=== PATIENT | male | born 1940 | race Caucasian/White ===

== ENCOUNTER 2021-01-28 07:44 | Day surgery (SDC) | payer OTHER ==
[2021-01-28] MEDS ORDERED: LEUPROLIDE ACETATE 22.5 MG DIS IM ONE (15:30)
[2021-01-28 16:09] LABS: BASO % 0.5 % (0-2.0); EOS % 0.7 % (0-4.5); HEMATOCRIT 44.2 % (35.4-49); HEMOGLOBIN 14.1 GM/dL (11.7-16.9); LYMPH % 24.1 % (8-40); MCHC 31.9 g/dl (32.0-35.9); MEAN CELL VOLUME 62.8 fl (80-96); MEAN PLT VOLUME 8.8 fl (7.5-11.1); MONO % 7.8 % (3.8-10.2); NEUT % 66.9 % (42.8-82.8); PLATELET COUNT 219 10^3/uL (134-434); WHITE BLOOD COUNT 6.2 K/mm3 (4.0-10.0)
[2021-01-28 16:33] LABS: ALBUMIN 4.3 g/dl (3.4-5.0); BLOOD UREA NITROGEN 20.4 mg/dL (7-18)
[2021-01-28 16:36] LABS: CREATININE 0.9 mg/dL (0.55-1.3)
[2021-01-28 16:38] LABS: BILIRUBIN,TOTAL 0.9 mg/dL (0.2-1); TOT PROT 7.6 g/dl (6.4-8.2)
[2021-01-28 16:44] LABS: RBC 7.03 M/mm3 (4.00-5.60)
[2021-01-28 17:45] VITALS: BP 138/62; PULSE 76; TEMP 98
[2021-01-28 18:53] LABS: ANISOCYTOSIS 2+
== END 2021-01-28 16:15 | disposition home or self-care (01) ==
LOC: JONCCHEMO 07:44
PROVIDERS: ATTEND Internal Medicine Hematology & Oncology
PROC: 3E013GC Introduction of Other Therapeutic Substance into Subcutaneous Tissue, Percutaneous Approach (ICD-10-PCS; principal; 2021-01-28)
DX: C61 Malignant neoplasm of prostate (principal); I10 Essential (primary) hypertension; E11.9 Type 2 diabetes mellitus without complications; Z76.89 Persons encountering health services in other specified circumstances
CPT/HCPCS: 36415; 80053; 85025; 96372; J9217

== ENCOUNTER 2021-05-06 10:02 | Day surgery (SDC) | payer OTHER ==
[~2021-05-06 10:02] MED LIST: LEUPROLIDE ACETATE 22.5 MG DIS IM ONE
[2021-05-06 11:15] LABS: BASO % 0.6 % (0-2.0); EOS % 0.6 % (0-4.5); HEMATOCRIT 38.8 % (35.4-49); HEMOGLOBIN 12.5 GM/dL (11.7-16.9); LYMPH % 33.9 % (8-40); MCH 20.4 pg (25.7-33.7); MCHC 32.3 g/dl (32.0-35.9); MEAN PLT VOLUME 8.1 fl (7.5-11.1); MONO % 8.8 % (3.8-10.2); NEUT % 56.1 % (42.8-82.8); PLATELET COUNT 231 10^3/uL (134-434); RBC 6.16 M/mm3 (4.00-5.60); RDW 16.7 % (11.9-15.9); WHITE BLOOD COUNT 5.8 K/mm3 (4.0-10.0)
[2021-05-06 11:40] LABS: CALCIUM 9.6 mg/dL (8.5-10.1)
[2021-05-06 11:41] LABS: ALBUMIN 4.1 g/dl (3.4-5.0); BLOOD UREA NITROGEN 23.7 mg/dL (7-18)
[2021-05-06 11:43] LABS: ANISOCYTOSIS 2+; CREATININE 0.9 mg/dL (0.55-1.3); MACROCYTOSIS 0; PLATELET ESTIMATE NORMAL
[2021-05-06 11:45] LABS: BILIRUBIN,TOTAL 0.7 mg/dL (0.2-1)
[2021-05-06 11:46] LABS: TOT PROT 7.3 g/dl (6.4-8.2)
[2021-05-06 16:24] VITALS: BP 126/73; TEMP 98.4
[2021-05-06 16:26] VITALS: PULSE 100
== END 2021-05-06 12:40 | disposition home or self-care (01) ==
LOC: JONCCHEMO 10:02
PROVIDERS: ATTEND Internal Medicine Hematology & Oncology
DX: Z51.11 Encounter for antineoplastic chemotherapy (principal); C61 Malignant neoplasm of prostate
CPT/HCPCS: 36415; 80053; 84153; 85025; 96402; J9217

== ENCOUNTER 2021-06-24 08:59 | Day surgery (SDC) | payer OTHER ==
[2021-06-24] MEDS ORDERED: DENOSUMAB 120 MG/1.7 ML VIAL SQ ONE (12:00)
[2021-06-24 12:34] LABS: BASO % 0.6 % (0-2.0); EOS % 0.9 % (0-4.5); HEMATOCRIT 40.5 % (35.4-49); HEMOGLOBIN 12.5 GM/dL (11.7-16.9); LYMPH % 38.3 % (8-40); MCHC 30.8 g/dl (32.0-35.9); MEAN PLT VOLUME 7.9 fl (7.5-11.1); MONO % 6.6 % (3.8-10.2); NEUT % 53.6 % (42.8-82.8); PLATELET COUNT 265 10^3/uL (134-434); RBC 6.23 M/mm3 (4.00-5.60); RDW 16.3 % (11.9-15.9); WHITE BLOOD COUNT 5.3 K/mm3 (4.0-10.0)
[2021-06-24 12:50] LABS: ALBUMIN 4.1 g/dl (3.4-5.0); BLOOD UREA NITROGEN 19.5 mg/dL (7-18); CALCIUM 9.9 mg/dL (8.5-10.1)
[2021-06-24 12:53] LABS: CREATININE 0.8 mg/dL (0.55-1.3)
[2021-06-24 12:55] LABS: TOT PROT 7.4 g/dl (6.4-8.2)
[2021-06-24 12:58] LABS: BILIRUBIN,TOTAL 0.7 mg/dL (0.2-1)
[2021-06-24 14:21] LABS: ANISOCYTOSIS 1+; MACROCYTOSIS 0; PLATELET ESTIMATE NORMAL
[2021-06-24 17:11] VITALS: BP 109/44; PULSE 52; TEMP 98
== END 2021-06-24 12:45 | disposition home or self-care (01) ==
LOC: JONCCHEMO 08:59
PROVIDERS: ATTEND Internal Medicine Hematology & Oncology
PROC: 3E013GC Introduction of Other Therapeutic Substance into Subcutaneous Tissue, Percutaneous Approach (ICD-10-PCS; principal; 2021-06-24)
DX: C61 Malignant neoplasm of prostate (principal); Z76.89 Persons encountering health services in other specified circumstances
CPT/HCPCS: 36415; 80053; 85025; 96372; J0897

== ENCOUNTER 2021-07-22 08:15 | Day surgery (SDC) | payer OTHER ==
[2021-07-22] MEDS ORDERED: DENOSUMAB 120 MG/1.7 ML VIAL SQ ONE (10:00)
[2021-07-22 12:35] LABS: BASO % 0.6 % (0-2.0); EOS % 0.9 % (0-4.5); HEMATOCRIT 39.4 % (35.4-49); HEMOGLOBIN 12.5 GM/dL (11.7-16.9); LYMPH % 40.9 % (8-40); MCH 20.8 pg (25.7-33.7); MCHC 31.8 g/dl (32.0-35.9); MEAN CELL VOLUME 65.3 fl (80-96); MEAN PLT VOLUME 8.2 fl (7.5-11.1); MONO % 6.6 % (3.8-10.2); PLATELET COUNT 237 10^3/uL (134-434); RBC 6.03 M/mm3 (4.00-5.60); RDW 16.1 % (11.9-15.9); WHITE BLOOD COUNT 4.7 K/mm3 (4.0-10.0)
[2021-07-22 12:59] LABS: ALBUMIN 4.1 g/dl (3.4-5.0); BLOOD UREA NITROGEN 22.1 mg/dL (7-18)
[2021-07-22 13:02] LABS: CREATININE 0.8 mg/dL (0.55-1.3)
[2021-07-22 13:04] LABS: BILIRUBIN,TOTAL 0.8 mg/dL (0.2-1); TOT PROT 7.1 g/dl (6.4-8.2)
[2021-07-22 13:19] LABS: ANISOCYTOSIS 2+; MACROCYTOSIS 0; OVALOCYTE 2+; TEAR DROP CELLS 1+
[2021-07-22 15:14] VITALS: BP 118/59; PULSE 71; TEMP 97.9
== END 2021-07-22 14:00 | disposition home or self-care (01) ==
LOC: JONCCHEMO 08:15
PROVIDERS: ATTEND Internal Medicine Hematology & Oncology
PROC: 3E013GC Introduction of Other Therapeutic Substance into Subcutaneous Tissue, Percutaneous Approach (ICD-10-PCS; principal; 2021-07-22)
DX: C61 Malignant neoplasm of prostate (principal); Z76.89 Persons encountering health services in other specified circumstances
CPT/HCPCS: 36415; 80053; 85025; 96372; J0897

== ENCOUNTER 2021-08-05 07:47 | Day surgery (SDC) | payer OTHER ==
[2021-08-05] MEDS ORDERED: LEUPROLIDE ACETATE 22.5 MG DIS IM ONE (09:00)
[2021-08-05 11:12] LABS: BASO % 0.5 % (0-2.0); EOS % 0.9 % (0-4.5); HEMOGLOBIN 12.8 GM/dL (11.7-16.9); LYMPH % 36.5 % (8-40); MCH 20.8 pg (25.7-33.7); MEAN CELL VOLUME 64.9 fl (80-96); MONO % 7.3 % (3.8-10.2); NEUT % 54.8 % (42.8-82.8); PLATELET COUNT 216 10^3/uL (134-434); RBC 6.16 M/mm3 (4.00-5.60); RDW 16.1 % (11.9-15.9)
[2021-08-05 11:32] LABS: BLOOD UREA NITROGEN 20.5 mg/dL (7-18); CALCIUM 9.2 mg/dL (8.5-10.1)
[2021-08-05 11:35] LABS: CREATININE 0.9 mg/dL (0.55-1.3)
[2021-08-05 11:37] LABS: BILIRUBIN,TOTAL 0.7 mg/dL (0.2-1); TOT PROT 7.1 g/dl (6.4-8.2)
[2021-08-05 12:10] LABS: ANISOCYTOSIS 3+; MACROCYTOSIS 0
[2021-08-05 16:14] VITALS: BP 147/72; PULSE 78; TEMP 98.2
== END 2021-08-05 12:40 | disposition home or self-care (01) ==
LOC: JONCCHEMO 07:47
PROVIDERS: ATTEND Internal Medicine Hematology & Oncology
PROC: 3E013GC Introduction of Other Therapeutic Substance into Subcutaneous Tissue, Percutaneous Approach (ICD-10-PCS; principal; 2021-08-05)
DX: C61 Malignant neoplasm of prostate (principal); Z76.89 Persons encountering health services in other specified circumstances
CPT/HCPCS: 36415; 80053; 85025; 96372; J9217

== ENCOUNTER 2021-08-27 08:30 | Day surgery (SDC) | payer OTHER ==
[2021-08-27] MEDS ORDERED: LEUPROLIDE ACETATE 22.5 MG DIS IM ONE (10:00)
[2021-08-27] MEDS ORDERED: DENOSUMAB 120 MG/1.7 ML VIAL SQ ONE ×2 (10:00→12:17)
[2021-08-27 13:59] LABS: BASO % 0.5 % (0-2.0); HEMATOCRIT 39.2 % (35.4-49); HEMOGLOBIN 12.3 GM/dL (11.7-16.9); LYMPH % 36.7 % (8-40); MCH 20.3 pg (25.7-33.7); MCHC 31.4 g/dl (32.0-35.9); MEAN CELL VOLUME 64.7 fl (80-96); MEAN PLT VOLUME 8.1 fl (7.5-11.1); MONO % 6.6 % (3.8-10.2); NEUT % 55.2 % (42.8-82.8); PLATELET COUNT 263 10^3/uL (134-434); RBC 6.06 M/mm3 (4.00-5.60); RDW 15.4 % (11.9-15.9); WHITE BLOOD COUNT 5.2 K/mm3 (4.0-10.0)
[2021-08-27 14:25] LABS: ALBUMIN 3.9 g/dl (3.4-5.0); BLOOD UREA NITROGEN 19.2 mg/dL (7-18); CALCIUM 9.1 mg/dL (8.5-10.1)
[2021-08-27 14:28] LABS: CREATININE 0.8 mg/dL (0.55-1.3)
[2021-08-27 14:30] LABS: BILIRUBIN,TOTAL 0.6 mg/dL (0.2-1); TOT PROT 7.1 g/dl (6.4-8.2)
[2021-08-27 14:38] LABS: ANISOCYTOSIS 3+; MACROCYTOSIS 0
[2021-08-27 17:55] VITALS: BP 121/68; PULSE 75; TEMP 98.6
== END 2021-08-27 15:45 | disposition home or self-care (01) ==
LOC: JONCCHEMO 08:30
PROVIDERS: ATTEND Internal Medicine Hematology & Oncology
PROC: 3E013GC Introduction of Other Therapeutic Substance into Subcutaneous Tissue, Percutaneous Approach (ICD-10-PCS; principal; 2021-08-27)
DX: C61 Malignant neoplasm of prostate (principal); Z76.89 Persons encountering health services in other specified circumstances
CPT/HCPCS: 36415; 80053; 84153; 85025; 96372; J0897

== ENCOUNTER 2021-09-23 08:10 | Day surgery (SDC) | payer OTHER ==
[2021-09-23] MEDS ORDERED: DENOSUMAB 120 MG/1.7 ML VIAL SQ ONE (10:00)
[2021-09-23 13:27] LABS: BASO % 0.6 % (0-2.0); EOS % 0.7 % (0-4.5); HEMATOCRIT 38.8 % (35.4-49); HEMOGLOBIN 12.5 GM/dL (11.7-16.9); LYMPH % 35.1 % (8-40); MCHC 32.1 g/dl (32.0-35.9); MEAN CELL VOLUME 65.3 fl (80-96); MEAN PLT VOLUME 8.2 fl (7.5-11.1); MONO % 8.3 % (3.8-10.2); NEUT % 55.3 % (42.8-82.8); PLATELET COUNT 230 10^3/uL (134-434); RBC 5.94 M/mm3 (4.00-5.60); RDW 15.9 % (11.9-15.9); WHITE BLOOD COUNT 4.6 K/mm3 (4.0-10.0)
[2021-09-23 13:41] LABS: ALBUMIN 4.2 g/dl (3.4-5.0); CALCIUM 9.8 mg/dL (8.5-10.1)
[2021-09-23 13:42] LABS: BLOOD UREA NITROGEN 18.9 mg/dL (7-18)
[2021-09-23 13:44] LABS: CREATININE 0.8 mg/dL (0.55-1.3)
[2021-09-23 13:46] LABS: BILIRUBIN,TOTAL 0.7 mg/dL (0.2-1); TOT PROT 7.3 g/dl (6.4-8.2)
[2021-09-23 14:02] LABS: ANISOCYTOSIS 2+; MACROCYTOSIS 0; TEAR DROP CELLS 1+
[2021-09-23 16:03] VITALS: BP 141/72; PULSE 69; TEMP 98.3
== END 2021-09-23 14:00 | disposition home or self-care (01) ==
LOC: JONCCHEMO 08:10
PROVIDERS: ATTEND Internal Medicine Hematology & Oncology
PROC: 3E013GC Introduction of Other Therapeutic Substance into Subcutaneous Tissue, Percutaneous Approach (ICD-10-PCS; principal; 2021-09-23)
DX: C61 Malignant neoplasm of prostate (principal); Z76.89 Persons encountering health services in other specified circumstances
CPT/HCPCS: 36415; 80053; 84153; 84402; 84403; 85025; 96372; J0897

== ENCOUNTER 2021-10-21 08:49 | Day surgery (SDC) | payer OTHER ==
[2021-10-21] MEDS ORDERED: DENOSUMAB 120 MG/1.7 ML VIAL SQ ONE ×2 (10:00)
[2021-10-21 13:14] LABS: BASO % 0.5 % (0-2.0); EOS % 0.9 % (0-4.5); HEMATOCRIT 37.8 % (35.4-49); HEMOGLOBIN 12.2 GM/dL (11.7-16.9); LYMPH % 32.6 % (8-40); MCH 20.9 pg (25.7-33.7); MCHC 32.4 g/dl (32.0-35.9); MEAN CELL VOLUME 64.5 fl (80-96); MEAN PLT VOLUME 8.2 fl (7.5-11.1); MONO % 5.4 % (3.8-10.2); NEUT % 60.6 % (42.8-82.8); PLATELET COUNT 218 10^3/uL (134-434); RBC 5.86 M/mm3 (4.00-5.60); RDW 15.4 % (11.9-15.9)
[2021-10-21 13:29] LABS: CALCIUM 9.5 mg/dL (8.5-10.1)
[2021-10-21 13:30] LABS: BLOOD UREA NITROGEN 16.5 mg/dL (7-18)
[2021-10-21 13:33] LABS: CREATININE 0.9 mg/dL (0.55-1.3)
[2021-10-21 13:34] LABS: BILIRUBIN,TOTAL 0.6 mg/dL (0.2-1)
[2021-10-21 14:34] LABS: ANISOCYTOSIS 3+; MACROCYTOSIS 0
[2021-10-21 18:52] VITALS: BP 121/62; PULSE 84; TEMP 98.5
== END 2021-10-21 13:15 | disposition home or self-care (01) ==
LOC: JONCCHEMO 08:49
PROVIDERS: ATTEND Internal Medicine Hematology & Oncology
PROC: 3E013GC Introduction of Other Therapeutic Substance into Subcutaneous Tissue, Percutaneous Approach (ICD-10-PCS; principal; 2021-10-21)
DX: C61 Malignant neoplasm of prostate (principal); Z76.89 Persons encountering health services in other specified circumstances
CPT/HCPCS: 36415; 80053; 85025; 96372; J0897

== ENCOUNTER 2021-10-28 07:45 | Day surgery (SDC) | payer OTHER ==
[2021-10-28] MEDS ORDERED: LEUPROLIDE ACETATE 22.5 MG DIS IM ONE (10:00)
[2021-10-28 12:47] VITALS: BP 102/63; PULSE 80; TEMP 98.4
[2021-10-28 13:36] LABS: BASO % 0.4 % (0-2.0); EOS % 0.8 % (0-4.5); HEMATOCRIT 38.8 % (35.4-49); HEMOGLOBIN 12.5 GM/dL (11.7-16.9); LYMPH % 33.3 % (8-40); MCH 20.9 pg (25.7-33.7); MCHC 32.2 g/dl (32.0-35.9); MEAN CELL VOLUME 64.9 fl (80-96); MONO % 6.6 % (3.8-10.2); NEUT % 58.9 % (42.8-82.8); PLATELET COUNT 230 10^3/uL (134-434); RBC 5.98 M/mm3 (4.00-5.60); RDW 15.5 % (11.9-15.9); WHITE BLOOD COUNT 5.3 K/mm3 (4.0-10.0)
[2021-10-28 13:46] LABS: BLOOD UREA NITROGEN 19.6 mg/dL (7-18); CALCIUM 9.5 mg/dL (8.5-10.1)
[2021-10-28 13:50] LABS: CREATININE 0.8 mg/dL (0.55-1.3)
[2021-10-28 13:51] LABS: BILIRUBIN,TOTAL 0.6 mg/dL (0.2-1); TOT PROT 7.1 g/dl (6.4-8.2)
[2021-10-28 15:22] LABS: ANISOCYTOSIS 2+; MACROCYTOSIS 0; OVALOCYTE 2+; TEAR DROP CELLS 1+
== END 2021-10-28 14:50 | disposition home or self-care (01) ==
LOC: JONCCHEMO 07:45
PROVIDERS: ATTEND Internal Medicine Hematology & Oncology
DX: Z51.11 Encounter for antineoplastic chemotherapy (principal); C61 Malignant neoplasm of prostate
CPT/HCPCS: 36415; 80053; 85025; 96402; J9217

== ENCOUNTER 2021-11-25 07:26 | Day surgery (SDC) | payer OTHER ==
[2021-11-25] MEDS ORDERED: DENOSUMAB 120 MG/1.7 ML VIAL SQ ONE (10:00)
[2021-11-25 14:18] LABS: BASO % 0.7 % (0-2.0); EOS % 1.2 % (0-4.5); HEMATOCRIT 40.4 % (35.4-49); HEMOGLOBIN 12.7 GM/dL (11.7-16.9); LYMPH % 38.5 % (8-40); MCH 20.5 pg (25.7-33.7); MCHC 31.4 g/dl (32.0-35.9); MEAN CELL VOLUME 65.4 fl (80-96); MEAN PLT VOLUME 8.7 fl (7.5-11.1); MONO % 6.3 % (3.8-10.2); NEUT % 53.3 % (42.8-82.8); PLATELET COUNT 249 10^3/uL (134-434); RBC 6.18 M/mm3 (4.00-5.60); RDW 15.6 % (11.9-15.9); WHITE BLOOD COUNT 5.4 K/mm3 (4.0-10.0)
[2021-11-25 14:38] LABS: ANISOCYTOSIS 1+; MACROCYTOSIS 0
[2021-11-25 14:45] LABS: CALCIUM 9.3 mg/dL (8.5-10.1)
[2021-11-25 14:46] LABS: ALBUMIN 4.3 g/dl (3.4-5.0)
[2021-11-25 14:50] LABS: TOT PROT 7.4 g/dl (6.4-8.2)
[2021-11-25 14:51] LABS: BILIRUBIN,TOTAL 0.8 mg/dL (0.2-1)
[2021-11-25 15:24] VITALS: BP 114/52; PULSE 80; TEMP 97
== END 2021-11-25 15:40 | disposition home or self-care (01) ==
LOC: JONCCHEMO 07:26
PROVIDERS: ATTEND Internal Medicine Hematology & Oncology
PROC: 3E013GC Introduction of Other Therapeutic Substance into Subcutaneous Tissue, Percutaneous Approach (ICD-10-PCS; principal; 2021-11-25)
DX: C61 Malignant neoplasm of prostate (principal); Z76.89 Persons encountering health services in other specified circumstances
CPT/HCPCS: 36415; 80053; 84153; 85025; 96372; J0897

== ENCOUNTER 2021-12-23 07:02 | Day surgery (SDC) | payer OTHER ==
[2021-12-23] MEDS ORDERED: DENOSUMAB 120 MG/1.7 ML VIAL SQ ONE (10:00)
[2021-12-23 11:43] LABS: BASO % 0.4 % (0-2.0); EOS % 0.6 % (0-4.5); HEMATOCRIT 37.1 % (35.4-49); HEMOGLOBIN 12.1 GM/dL (11.7-16.9); LYMPH % 32.9 % (8-40); MCH 21.2 pg (25.7-33.7); MCHC 32.7 g/dl (32.0-35.9); MEAN CELL VOLUME 64.7 fl (80-96); MEAN PLT VOLUME 8.2 fl (7.5-11.1); MONO % 6.4 % (3.8-10.2); NEUT % 59.7 % (42.8-82.8); PLATELET COUNT 225 10^3/uL (134-434); RBC 5.73 M/mm3 (4.00-5.60); RDW 15.7 % (11.9-15.9); WHITE BLOOD COUNT 5.1 K/mm3 (4.0-10.0)
[2021-12-23 12:02] LABS: ALBUMIN 3.9 g/dl (3.4-5.0); BLOOD UREA NITROGEN 18.2 mg/dL (7-18); CALCIUM 8.8 mg/dL (8.5-10.1)
[2021-12-23 12:05] LABS: CREATININE 0.8 mg/dL (0.55-1.3)
[2021-12-23 12:06] LABS: BILIRUBIN,TOTAL 0.6 mg/dL (0.2-1)
[2021-12-23 12:25] LABS: ANISOCYTOSIS 1+; MACROCYTOSIS 0
[2021-12-23 15:28] VITALS: BP 105/64; PULSE 77; RESP 16; TEMP 98.3
== END 2021-12-23 12:50 | disposition home or self-care (01) ==
LOC: JONCCHEMO 07:02
PROVIDERS: ATTEND Internal Medicine Hematology & Oncology
PROC: 3E013GC Introduction of Other Therapeutic Substance into Subcutaneous Tissue, Percutaneous Approach (ICD-10-PCS; principal; 2021-12-23)
DX: C61 Malignant neoplasm of prostate (principal); Z76.89 Persons encountering health services in other specified circumstances
CPT/HCPCS: 36415; 80053; 85025; 96372; J0897

== ENCOUNTER 2022-01-24 08:00 | Day surgery (SDC) | payer OTHER ==
[2022-01-24] MEDS ORDERED: DENOSUMAB 120 MG/1.7 ML VIAL SQ ONE (10:00)
[2022-01-24] MEDS ORDERED: LEUPROLIDE ACETATE 22.5 MG DIS IM ONE (10:00)
[2022-01-24 11:17] LABS: BASO % 0.4 % (0-2.0); EOS % 0.7 % (0-4.5); HEMATOCRIT 38.4 % (35.4-49); HEMOGLOBIN 12.5 GM/dL (11.7-16.9); LYMPH % 31.1 % (8-40); MCH 21.2 pg (25.7-33.7); MCHC 32.5 g/dl (32.0-35.9); MEAN CELL VOLUME 65.2 fl (80-96); MEAN PLT VOLUME 7.8 fl (7.5-11.1); MONO % 7.7 % (3.8-10.2); NEUT % 60.1 % (42.8-82.8); PLATELET COUNT 250 10^3/uL (134-434); RBC 5.89 M/mm3 (4.00-5.60); RDW 15.7 % (11.9-15.9); WHITE BLOOD COUNT 6.1 K/mm3 (4.0-10.0)
[2022-01-24 11:36] LABS: ALBUMIN 4.2 g/dl (3.4-5.0); BLOOD UREA NITROGEN 19.2 mg/dL (7-18); CALCIUM 10.1 mg/dL (8.5-10.1); MAGNESIUM 2.2 mg/dL (1.8-2.4)
[2022-01-24 11:39] LABS: BILIRUBIN,DIRECT 0.1 mg/dL (0.0-0.2); CREATININE 0.8 mg/dL (0.55-1.3)
[2022-01-24 11:41] LABS: BILIRUBIN,TOTAL 0.7 mg/dL (0.2-1); TOT PROT 7.4 g/dl (6.4-8.2)
[2022-01-24 12:29] LABS: ANISOCYTOSIS 0; MACROCYTOSIS 0
[2022-01-24 17:54] VITALS: BP 109/54; PULSE 84; RESP 18; TEMP 98.4
== END 2022-01-24 12:15 | disposition home or self-care (01) ==
LOC: JONCCHEMO 08:00
PROVIDERS: ATTEND Internal Medicine Hematology & Oncology
PROC: 3E013GC Introduction of Other Therapeutic Substance into Subcutaneous Tissue, Percutaneous Approach (ICD-10-PCS; principal; 2022-01-24)
PROC: 3E01305 Introduction of Other Antineoplastic into Subcutaneous Tissue, Percutaneous Approach (ICD-10-PCS; 2022-01-24)
DX: Z51.11 Encounter for antineoplastic chemotherapy (principal); C61 Malignant neoplasm of prostate
CPT/HCPCS: 36415; 80048; 80076; 83735; 84153; 84402; 84403; 85025; 96372; 96402; J0897; J9217

== ENCOUNTER 2022-02-22 09:04 | Day surgery (SDC) | payer OTHER ==
[2022-02-22 09:34] LABS: HEMATOCRIT 38.5 % (35.4-49); HEMOGLOBIN 12.5 GM/dL (11.7-16.9); MCH 21.2 pg (25.7-33.7); MCHC 32.5 g/dl (32.0-35.9); MEAN CELL VOLUME 65.3 fl (80-96); MEAN PLT VOLUME 7.5 fl (7.5-11.1); PLATELET COUNT 287 10^3/uL (134-434); RBC 5.89 M/mm3 (4.00-5.60); RDW 15.3 % (11.9-15.9); WHITE BLOOD COUNT 8.2 K/mm3 (4.0-10.0)
[2022-02-22 09:50] LABS: BLOOD UREA NITROGEN 22.9 mg/dL (7-18); MAGNESIUM 2.1 mg/dL (1.8-2.4)
[2022-02-22 09:53] LABS: BILIRUBIN,DIRECT 0.1 mg/dL (0.0-0.2); CREATININE 0.8 mg/dL (0.55-1.3)
[2022-02-22 09:54] LABS: BILIRUBIN,TOTAL 0.6 mg/dL (0.2-1)
[2022-02-22 09:55] LABS: TOT PROT 7.3 g/dl (6.4-8.2)
[2022-02-22] MEDS ORDERED: DENOSUMAB 120 MG/1.7 ML VIAL SQ ONE (10:00)
[2022-02-22 10:23] LABS: ANISOCYTOSIS 2+; MACROCYTOSIS 0; TEAR DROP CELLS 1+
[2022-02-22 16:33] VITALS: BP 104/49; PULSE 80; RESP 20; TEMP 98.2
== END 2022-02-22 10:20 | disposition home or self-care (01) ==
LOC: JONCCHEMO 09:04
PROVIDERS: ATTEND Internal Medicine Hematology & Oncology
DX: C61 Malignant neoplasm of prostate (principal); Z76.89 Persons encountering health services in other specified circumstances
CPT/HCPCS: 36415; 80048; 80076; 82306; 83735; 84153; 84402; 84403; 85025; 96372; J0897

== ENCOUNTER 2022-03-22 08:42 | Day surgery (SDC) | payer OTHER ==
[2022-03-22 09:02] LABS: BASO % 0.6 % (0-2.0); EOS % 0.9 % (0-4.5); HEMATOCRIT 39.4 % (35.4-49); HEMOGLOBIN 12.5 GM/dL (11.7-16.9); LYMPH % 32.3 % (8-40); MCH 20.7 pg (25.7-33.7); MCHC 31.8 g/dl (32.0-35.9); MEAN CELL VOLUME 65.1 fl (80-96); MEAN PLT VOLUME 7.8 fl (7.5-11.1); MONO % 6.7 % (3.8-10.2); NEUT % 59.5 % (42.8-82.8); PLATELET COUNT 274 10^3/uL (134-434); RBC 6.05 M/mm3 (4.00-5.60); RDW 15.7 % (11.9-15.9); WHITE BLOOD COUNT 6.6 K/mm3 (4.0-10.0)
[2022-03-22 09:21] LABS: ALBUMIN 4.1 g/dl (3.4-5.0); BLOOD UREA NITROGEN 21.6 mg/dL (7-18); CALCIUM 10.3 mg/dL (8.5-10.1)
[2022-03-22 09:22] LABS: MAGNESIUM 2.1 mg/dL (1.8-2.4)
[2022-03-22 09:24] LABS: BILIRUBIN,DIRECT 0.2 mg/dL (0.0-0.2); CREATININE 0.8 mg/dL (0.55-1.3)
[2022-03-22 09:26] LABS: BILIRUBIN,TOTAL 0.5 mg/dL (0.2-1); TOT PROT 7.1 g/dl (6.4-8.2)
[2022-03-22] MEDS ORDERED: DENOSUMAB 120 MG/1.7 ML VIAL SQ ONE (10:00)
[2022-03-22 10:45] LABS: ANISOCYTOSIS 1+; MACROCYTOSIS 0; OVALOCYTE 1+
[2022-03-22 14:02] VITALS: BP 133/67; PULSE 76; RESP 20; TEMP 98.8
== END 2022-03-22 10:00 | disposition home or self-care (01) ==
LOC: JONCCHEMO 08:42
PROVIDERS: ATTEND Internal Medicine Hematology & Oncology
PROC: 3E013GC Introduction of Other Therapeutic Substance into Subcutaneous Tissue, Percutaneous Approach (ICD-10-PCS; principal; 2022-03-22)
DX: C61 Malignant neoplasm of prostate (principal); Z76.89 Persons encountering health services in other specified circumstances
CPT/HCPCS: 36415; 80048; 80076; 83735; 84153; 84402; 84403; 85025; 96372; J0897

== ENCOUNTER 2022-04-18 10:40 | Day surgery (SDC) | payer OTHER ==
[2022-04-18 11:54] LABS: BASO % 0.5 % (0-2.0); EOS % 0.9 % (0-4.5); HEMATOCRIT 39.2 % (35.4-49); HEMOGLOBIN 12.2 GM/dL (11.7-16.9); LYMPH % 32.6 % (8-40); MCH 20.5 pg (25.7-33.7); MCHC 31.2 g/dl (32.0-35.9); MEAN CELL VOLUME 65.7 fl (80-96); MEAN PLT VOLUME 8.6 fl (7.5-11.1); MONO % 7.9 % (3.8-10.2); NEUT % 58.1 % (42.8-82.8); PLATELET COUNT 251 10^3/uL (134-434); RBC 5.96 M/mm3 (4.00-5.60); RDW 16.1 % (11.9-15.9); WHITE BLOOD COUNT 5.4 K/mm3 (4.0-10.0)
[2022-04-18] MEDS ORDERED: DENOSUMAB 120 MG/1.7 ML VIAL SQ ONE (12:00)
[2022-04-18] MEDS ORDERED: LEUPROLIDE ACETATE 22.5 MG DIS IM ONE (12:00)
[2022-04-18 12:20] LABS: CALCIUM 9.7 mg/dL (8.5-10.1)
[2022-04-18 12:21] LABS: ALBUMIN 4.1 g/dl (3.4-5.0); BLOOD UREA NITROGEN 18.3 mg/dL (7-18); MAGNESIUM 2.3 mg/dL (1.8-2.4)
[2022-04-18 12:22] LABS: BILIRUBIN,DIRECT 0.2 mg/dL (0.0-0.2)
[2022-04-18 12:24] LABS: CREATININE 0.8 mg/dL (0.55-1.3)
[2022-04-18 12:25] LABS: BILIRUBIN,TOTAL 0.9 mg/dL (0.2-1); TOT PROT 7.1 g/dl (6.4-8.2)
[2022-04-18 13:03] LABS: ANISOCYTOSIS 2+; MACROCYTOSIS 0; TEAR DROP CELLS 1+
[2022-04-18 17:51] VITALS: BP 121/59; PULSE 83; RESP 18; TEMP 97.7
== END 2022-04-18 12:35 | disposition home or self-care (01) ==
LOC: JONCCHEMO 10:40
PROVIDERS: ATTEND Internal Medicine Hematology & Oncology
PROC: 3E01305 Introduction of Other Antineoplastic into Subcutaneous Tissue, Percutaneous Approach (ICD-10-PCS; principal; 2022-04-18)
PROC: 3E013GC Introduction of Other Therapeutic Substance into Subcutaneous Tissue, Percutaneous Approach (ICD-10-PCS; 2022-04-18)
DX: Z51.11 Encounter for antineoplastic chemotherapy (principal); C61 Malignant neoplasm of prostate
CPT/HCPCS: 36415; 80048; 80076; 83735; 84153; 84402; 84403; 85025; 96372; 96401; J0897; J9217

== ENCOUNTER 2022-05-17 09:10 | Day surgery (SDC) | payer OTHER ==
[2022-05-17] MEDS ORDERED: DENOSUMAB 120 MG/1.7 ML VIAL SQ ONE (10:00)
[2022-05-17 10:22] LABS: BASO % 0.7 % (0-2.0); EOS % 1.4 % (0-4.5); HEMATOCRIT 40.1 % (35.4-49); HEMOGLOBIN 12.6 GM/dL (11.7-16.9); LYMPH % 21.8 % (8-40); MCH 20.4 pg (25.7-33.7); MCHC 31.3 g/dl (32.0-35.9); MEAN CELL VOLUME 65.2 fl (80-96); MEAN PLT VOLUME 8.4 fl (7.5-11.1); MONO % 8.7 % (3.8-10.2); NEUT % 67.4 % (42.8-82.8); PLATELET COUNT 216 10^3/uL (134-434); RBC 6.14 M/mm3 (4.00-5.60); RDW 15.9 % (11.9-15.9); WHITE BLOOD COUNT 5.3 K/mm3 (4.0-10.0)
[2022-05-17 10:52] LABS: ALBUMIN 4.2 g/dl (3.4-5.0); CALCIUM 9.6 mg/dL (8.5-10.1); MAGNESIUM 2.2 mg/dL (1.8-2.4)
[2022-05-17 10:53] LABS: BLOOD UREA NITROGEN 18.7 mg/dL (7-18)
[2022-05-17 10:55] LABS: CREATININE 0.8 mg/dL (0.55-1.3)
[2022-05-17 10:57] LABS: BILIRUBIN,DIRECT 0.2 mg/dL (0.0-0.2); BILIRUBIN,TOTAL 0.8 mg/dL (0.2-1); TOT PROT 7.3 g/dl (6.4-8.2)
[2022-05-17 11:16] LABS: ANISOCYTOSIS 2+; MACROCYTOSIS 0
[2022-05-17 15:15] VITALS: BP 115/60; PULSE 92; RESP 20; TEMP 98.3
== END 2022-05-17 10:40 | disposition home or self-care (01) ==
LOC: JONCCHEMO 09:10
PROVIDERS: ATTEND Internal Medicine Hematology & Oncology
PROC: 3E013GC Introduction of Other Therapeutic Substance into Subcutaneous Tissue, Percutaneous Approach (ICD-10-PCS; principal; 2022-05-17)
DX: C61 Malignant neoplasm of prostate (principal); Z76.89 Persons encountering health services in other specified circumstances
CPT/HCPCS: 36415; 80048; 80076; 83735; 84153; 84402; 84403; 85025; 96372; J0897

== ENCOUNTER 2022-06-14 10:35 | Day surgery (SDC) | payer OTHER ==
[~2022-06-14 10:35] MED LIST changes: +DENOSUMAB 120 MG/1.7 ML VIAL SQ ONE; -LEUPROLIDE ACETATE 22.5 MG DIS IM ONE
[2022-06-14 11:34] LABS: BASO % 0.3 % (0-2.0); EOS % 0.9 % (0-4.5); HEMATOCRIT 38.9 % (35.4-49); HEMOGLOBIN 12.7 GM/dL (11.7-16.9); MCH 21.1 pg (25.7-33.7); MCHC 32.6 g/dl (32.0-35.9); MEAN CELL VOLUME 64.9 fl (80-96); MEAN PLT VOLUME 7.8 fl (7.5-11.1); MONO % 7.5 % (3.8-10.2); NEUT % 59.3 % (42.8-82.8); PLATELET COUNT 236 10^3/uL (134-434); RBC 5.99 M/mm3 (4.00-5.60); RDW 15.6 % (11.9-15.9); WHITE BLOOD COUNT 5.8 K/mm3 (4.0-10.0)
[2022-06-14 12:09] LABS: ALBUMIN 4.3 g/dl (3.4-5.0); CALCIUM 9.9 mg/dL (8.5-10.1); MAGNESIUM 2.1 mg/dL (1.8-2.4)
[2022-06-14 12:12] LABS: BILIRUBIN,DIRECT 0.2 mg/dL (0.0-0.2); CREATININE 0.8 mg/dL (0.55-1.3)
[2022-06-14 12:14] LABS: BILIRUBIN,TOTAL 0.8 mg/dL (0.2-1); TOT PROT 7.5 g/dl (6.4-8.2)
[2022-06-14 15:44] VITALS: BP 141/68; PULSE 86; RESP 20; TEMP 97.8
== END 2022-06-14 11:35 | disposition home or self-care (01) ==
LOC: JONCCHEMO 10:35
PROVIDERS: ATTEND Internal Medicine Hematology & Oncology
PROC: 3E013GC Introduction of Other Therapeutic Substance into Subcutaneous Tissue, Percutaneous Approach (ICD-10-PCS; principal; 2022-06-14)
DX: C61 Malignant neoplasm of prostate (principal); Z76.89 Persons encountering health services in other specified circumstances
CPT/HCPCS: 36415; 80048; 80076; 83735; 84153; 84402; 84403; 85025; 96372; J0897

== ENCOUNTER 2022-07-12 10:25 | Day surgery (SDC) | payer OTHER ==
[~2022-07-12 10:25] MED LIST changes: +LEUPROLIDE ACETATE 22.5 MG DIS IM ONE
[2022-07-12 11:11] LABS: BASO % 0.6 % (0-2.0); EOS % 0.5 % (0-4.5); HEMATOCRIT 39.9 % (35.4-49); HEMOGLOBIN 12.6 GM/dL (11.7-16.9); LYMPH % 33.8 % (8-40); MCH 20.7 pg (25.7-33.7); MCHC 31.7 g/dl (32.0-35.9); MEAN CELL VOLUME 65.5 fl (80-96); MEAN PLT VOLUME 8.4 fl (7.5-11.1); MONO % 6.6 % (3.8-10.2); NEUT % 58.5 % (42.8-82.8); PLATELET COUNT 237 10^3/uL (134-434); RBC 6.09 M/mm3 (4.00-5.60); RDW 15.9 % (11.9-15.9); WHITE BLOOD COUNT 5.3 K/mm3 (4.0-10.0)
[2022-07-12 11:46] LABS: CALCIUM 9.1 mg/dL (8.5-10.1)
[2022-07-12 11:48] LABS: BLOOD UREA NITROGEN 21.5 mg/dL (7-18); MAGNESIUM 2.1 mg/dL (1.8-2.4)
[2022-07-12 11:50] LABS: CREATININE 0.8 mg/dL (0.55-1.3)
[2022-07-12 11:53] LABS: TOT PROT 7.4 g/dl (6.4-8.2)
[2022-07-12 12:18] LABS: ANISOCYTOSIS 3+; MACROCYTOSIS 0
[2022-07-12 15:48] VITALS: BP 107/56; PULSE 64; TEMP 97.7
[2022-07-13 08:19] VITALS: RESP 18
== END 2022-07-12 13:30 | disposition home or self-care (01) ==
LOC: JONCCHEMO 10:25
PROVIDERS: ATTEND Internal Medicine Hematology & Oncology
PROC: 3E01305 Introduction of Other Antineoplastic into Subcutaneous Tissue, Percutaneous Approach (ICD-10-PCS; principal; 2022-07-12)
PROC: 3E013GC Introduction of Other Therapeutic Substance into Subcutaneous Tissue, Percutaneous Approach (ICD-10-PCS; 2022-07-12)
DX: Z51.11 Encounter for antineoplastic chemotherapy (principal); C61 Malignant neoplasm of prostate
CPT/HCPCS: 36415; 80053; 83735; 84153; 84402; 84403; 85025; 96372; 96402; J0897; J9217

== ENCOUNTER 2022-08-09 10:53 | Day surgery (SDC) | payer OTHER ==
[~2022-08-09 10:53] MED LIST changes: -LEUPROLIDE ACETATE 22.5 MG DIS IM ONE
[2022-08-09 11:41] LABS: BASO % 0.4 % (0-2.0); EOS % 0.5 % (0-4.5); HEMATOCRIT 37.9 % (35.4-49); HEMOGLOBIN 12.2 GM/dL (11.7-16.9); MCH 20.6 pg (25.7-33.7); MCHC 32.3 g/dl (32.0-35.9); MEAN CELL VOLUME 63.8 fl (80-96); MEAN PLT VOLUME 8.4 fl (7.5-11.1); MONO % 6.6 % (3.8-10.2); NEUT % 59.5 % (42.8-82.8); PLATELET COUNT 225 10^3/uL (134-434); RBC 5.94 M/mm3 (4.00-5.60); RDW 15.8 % (11.9-15.9); WHITE BLOOD COUNT 5.2 K/mm3 (4.0-10.0)
[2022-08-09 12:13] LABS: ANISOCYTOSIS 3+; MACROCYTOSIS 0; TEAR DROP CELLS 1+
[2022-08-09 12:16] LABS: BLOOD UREA NITROGEN 19.4 mg/dL (7-18); CALCIUM 9.3 mg/dL (8.5-10.1)
[2022-08-09 12:17] LABS: MAGNESIUM 2.3 mg/dL (1.8-2.4)
[2022-08-09 12:19] LABS: BILIRUBIN,DIRECT 0.1 mg/dL (0.0-0.2); CREATININE 0.8 mg/dL (0.55-1.3)
[2022-08-09 12:21] LABS: BILIRUBIN,TOTAL 0.7 mg/dL (0.2-1); TOT PROT 7.2 g/dl (6.4-8.2)
[2022-08-09 15:26] VITALS: BP 132/69; PULSE 82; RESP 20; TEMP 97.7
== END 2022-08-09 11:00 | disposition home or self-care (01) ==
LOC: JONCCHEMO 10:53
PROVIDERS: ATTEND Internal Medicine Hematology & Oncology
PROC: 3E013GC Introduction of Other Therapeutic Substance into Subcutaneous Tissue, Percutaneous Approach (ICD-10-PCS; principal; 2022-08-09)
DX: C61 Malignant neoplasm of prostate (principal); Z76.89 Persons encountering health services in other specified circumstances
CPT/HCPCS: 36415; 80048; 80076; 83735; 84153; 84402; 84403; 85025; 96372; J0897

== ENCOUNTER 2022-09-06 10:49 | Day surgery (SDC) | payer OTHER ==
[2022-09-06 11:41] LABS: BASO % 0.5 % (0-2.0); EOS % 0.5 % (0-4.5); HEMATOCRIT 39.2 % (35.4-49); HEMOGLOBIN 12.7 GM/dL (11.7-16.9); LYMPH % 37.3 % (8-40); MCH 20.8 pg (25.7-33.7); MCHC 32.3 g/dl (32.0-35.9); MEAN CELL VOLUME 64.4 fl (80-96); MEAN PLT VOLUME 7.8 fl (7.5-11.1); MONO % 7.8 % (3.8-10.2); NEUT % 53.9 % (42.8-82.8); PLATELET COUNT 242 10^3/uL (134-434); RBC 6.09 M/mm3 (4.00-5.60); WHITE BLOOD COUNT 5.8 K/mm3 (4.0-10.0)
[2022-09-06 11:56] LABS: POTASSIUM 4.4 mmol/L (3.5-5.1)
[2022-09-06 11:57] LABS: CALCIUM 9.5 mg/dL (8.5-10.1)
[2022-09-06 11:59] LABS: ALBUMIN 4.2 g/dl (3.4-5.0); BLOOD UREA NITROGEN 20.1 mg/dL (7-18); MAGNESIUM 2.1 mg/dL (1.8-2.4)
[2022-09-06 12:00] LABS: ANISOCYTOSIS 3+; BILIRUBIN,DIRECT 0.1 mg/dL (0.0-0.2); MACROCYTOSIS 0; OVALOCYTE 1+; TARGET CELLS 1+
[2022-09-06 12:01] LABS: CREATININE 0.8 mg/dL (0.55-1.3)
[2022-09-06 12:02] LABS: BILIRUBIN,TOTAL 0.5 mg/dL (0.2-1)
[2022-09-06 12:04] LABS: TOT PROT 7.6 g/dl (6.4-8.2)
[2022-09-06 16:41] VITALS: BP 154/78; PULSE 57; RESP 18; TEMP 98.5
== END 2022-09-06 12:00 | disposition home or self-care (01) ==
LOC: JONCCHEMO 10:49
PROVIDERS: ATTEND Internal Medicine Hematology & Oncology
DX: C61 Malignant neoplasm of prostate (principal); Z76.89 Persons encountering health services in other specified circumstances
CPT/HCPCS: 36415; 80048; 80076; 83735; 84153; 84402; 84403; 85025; 96372; J0897

== ENCOUNTER 2022-10-26 08:54 | Day surgery (SDC) | payer OTHER ==
[2022-10-26] MEDS ORDERED: DENOSUMAB 120 MG/1.7 ML VIAL SQ ONE (10:00)
[2022-10-26] MEDS ORDERED: LEUPROLIDE ACETATE 22.5 MG DIS IM ONE (10:00)
[2022-10-26 10:01] LABS: BASO % 0.6 % (0-2.0); EOS % 0.7 % (0-4.5); HEMATOCRIT 38.4 % (35.4-49); HEMOGLOBIN 11.9 GM/dL (11.7-16.9); LYMPH % 32.6 % (8-40); MCH 20.5 pg (25.7-33.7); MCHC 31.1 g/dl (32.0-35.9); MEAN CELL VOLUME 65.7 fl (80-96); MEAN PLT VOLUME 8.3 fl (7.5-11.1); MONO % 6.9 % (3.8-10.2); NEUT % 59.2 % (42.8-82.8); PLATELET COUNT 211 10^3/uL (134-434); RBC 5.84 M/mm3 (4.00-5.60); RDW 15.8 % (11.9-15.9); WHITE BLOOD COUNT 4.9 K/mm3 (4.0-10.0)
[2022-10-26 10:24] LABS: POTASSIUM 4.4 mmol/L (3.5-5.1)
[2022-10-26 10:26] LABS: ALBUMIN 4.1 g/dl (3.4-5.0); BLOOD UREA NITROGEN 22.4 mg/dL (7-18); CALCIUM 9.8 mg/dL (8.5-10.1); MAGNESIUM 2.1 mg/dL (1.8-2.4)
[2022-10-26 10:29] LABS: BILIRUBIN,DIRECT 0.2 mg/dL (0.0-0.2); CREATININE 0.8 mg/dL (0.55-1.3)
[2022-10-26 10:31] LABS: BILIRUBIN,TOTAL 0.6 mg/dL (0.2-1); TOT PROT 7.3 g/dl (6.4-8.2)
[2022-10-26 10:46] LABS: ANISOCYTOSIS 3+; MACROCYTOSIS 0
[2022-10-26 16:42] VITALS: BP 126/61; PULSE 82; RESP 18; TEMP 98.1
== END 2022-10-26 10:50 | disposition home or self-care (01) ==
LOC: JONCCHEMO 08:54 → J7W 09:15 → JONCCHEMO 10:50
PROVIDERS: ATTEND Internal Medicine Hematology & Oncology
PROC: 3E01305 Introduction of Other Antineoplastic into Subcutaneous Tissue, Percutaneous Approach (ICD-10-PCS; principal; 2022-10-26)
PROC: 3E013GC Introduction of Other Therapeutic Substance into Subcutaneous Tissue, Percutaneous Approach (ICD-10-PCS; 2022-10-26)
DX: Z51.11 Encounter for antineoplastic chemotherapy (principal)
CPT/HCPCS: 36415; 80048; 80076; 83735; 84153; 84402; 84403; 85025; 96372; 96402; J0897; J9217

== ENCOUNTER 2022-12-20 09:54 | Day surgery (SDC) | payer OTHER ==
[2022-12-20] MEDS ORDERED: DENOSUMAB 120 MG/1.7 ML VIAL SQ ONE (10:00)
[2022-12-20 10:41] LABS: BASO % 0.5 % (0-2.0); EOS % 0.8 % (0-4.5); HEMATOCRIT 37.4 % (35.4-49); HEMOGLOBIN 12.1 GM/dL (11.7-16.9); LYMPH % 34.5 % (8-40); MCH 20.8 pg (25.7-33.7); MCHC 32.4 g/dl (32.0-35.9); MEAN CELL VOLUME 64.1 fl (80-96); MEAN PLT VOLUME 7.8 fl (7.5-11.1); NEUT % 58.2 % (42.8-82.8); PLATELET COUNT 215 10^3/uL (134-434); RBC 5.83 M/mm3 (4.00-5.60); RDW 15.7 % (11.9-15.9); WHITE BLOOD COUNT 4.5 K/mm3 (4.0-10.0)
[2022-12-20 11:40] LABS: ANISOCYTOSIS 1+; MACROCYTOSIS 0; OVALOCYTE 1+
[2022-12-20 11:54] LABS: POTASSIUM 4.2 mmol/L (3.5-5.1)
[2022-12-20 11:56] LABS: BLOOD UREA NITROGEN 18.1 mg/dL (7-18); CALCIUM 8.7 mg/dL (8.5-10.1); MAGNESIUM 2.3 mg/dL (1.8-2.4)
[2022-12-20 11:59] LABS: CREATININE 0.8 mg/dL (0.55-1.3)
[2022-12-20 12:00] LABS: BILIRUBIN,DIRECT 0.2 mg/dL (0.0-0.2)
[2022-12-20 12:01] LABS: BILIRUBIN,TOTAL 0.4 mg/dL (0.2-1); TOT PROT 6.8 g/dl (6.4-8.2)
[2022-12-20 16:17] VITALS: BP 138/66; PULSE 70; RESP 20; TEMP 98.1
== END 2022-12-20 10:35 | disposition home or self-care (01) ==
LOC: JONCCHEMO 09:54 → J7W 09:55 → JONCCHEMO 10:35
PROVIDERS: ATTEND Internal Medicine Hematology & Oncology
DX: C61 Malignant neoplasm of prostate (principal); Z76.89 Persons encountering health services in other specified circumstances
CPT/HCPCS: 36415; 80048; 80076; 83735; 84153; 84154; 84402; 84403; 85025; 96372; J0897

== ENCOUNTER 2023-01-17 10:03 | Day surgery (SDC) | payer OTHER ==
[~2023-01-17 10:03] MED LIST changes: +LEUPROLIDE ACETATE (ELIGARD) 22.5 MG SYRINGE SQ ONE
[2023-01-17 10:46] VITALS: BP 154/66; PULSE 70; RESP 20; TEMP 98.4
[2023-01-17 11:37] LABS: BASO % 0.6 % (0-2.0); EOS % 0.7 % (0-4.5); HEMATOCRIT 37.7 % (35.4-49); HEMOGLOBIN 12.1 GM/dL (11.7-16.9); LYMPH % 32.8 % (8-40); MCH 20.5 pg (25.7-33.7); MEAN CELL VOLUME 64.1 fl (80-96); MEAN PLT VOLUME 7.9 fl (7.5-11.1); MONO % 7.1 % (3.8-10.2); NEUT % 58.8 % (42.8-82.8); PLATELET COUNT 230 10^3/uL (134-434); RBC 5.88 M/mm3 (4.00-5.60); RDW 15.6 % (11.9-15.9); WHITE BLOOD COUNT 4.6 K/mm3 (4.0-10.0)
[2023-01-17 12:04] LABS: ANISOCYTOSIS 0; MACROCYTOSIS 0
[2023-01-17 12:06] LABS: POTASSIUM 4.2 mmol/L (3.5-5.1)
[2023-01-17 12:10] LABS: BLOOD UREA NITROGEN 18.9 mg/dL (7-18); CALCIUM 9.3 mg/dL (8.5-10.1); MAGNESIUM 2.1 mg/dL (1.8-2.4)
[2023-01-17 12:13] LABS: BILIRUBIN,DIRECT 0.1 mg/dL (0.0-0.2); CREATININE 0.8 mg/dL (0.55-1.3)
[2023-01-17 12:15] LABS: BILIRUBIN,TOTAL 0.6 mg/dL (0.2-1); TOT PROT 7.1 g/dl (6.4-8.2)
== END 2023-01-17 10:45 | disposition home or self-care (01) ==
LOC: JONCBLOOD 10:03 → J7W 10:05 → JONCBLOOD 10:45
PROVIDERS: ATTEND Internal Medicine Hematology & Oncology
PROC: 3E01305 Introduction of Other Antineoplastic into Subcutaneous Tissue, Percutaneous Approach (ICD-10-PCS; principal; 2023-01-17)
PROC: 3E033GC Introduction of Other Therapeutic Substance into Peripheral Vein, Percutaneous Approach (ICD-10-PCS; 2023-01-17)
DX: Z51.11 Encounter for antineoplastic chemotherapy (principal); C61 Malignant neoplasm of prostate
CPT/HCPCS: 36415; 80048; 80076; 83735; 84153; 84402; 84403; 85025; 96372; 96402; J0897; J9217

== ENCOUNTER 2023-02-14 10:30 | Day surgery (SDC) | payer OTHER ==
[2023-02-14] MEDS ORDERED: DENOSUMAB 120 MG/1.7 ML VIAL SQ ONE (11:15)
[2023-02-14 11:53] LABS: BASO % 0.3 % (0-2.0); EOS % 0.4 % (0-4.5); HEMOGLOBIN 12.2 GM/dL (11.7-16.9); LYMPH % 25.5 % (8-40); MCH 20.6 pg (25.7-33.7); MCHC 32.1 g/dl (32.0-35.9); MEAN CELL VOLUME 64.3 fl (80-96); MEAN PLT VOLUME 8.3 fl (7.5-11.1); MONO % 7.1 % (3.8-10.2); NEUT % 66.7 % (42.8-82.8); PLATELET COUNT 232 10^3/uL (134-434); RBC 5.91 M/mm3 (4.00-5.60); RDW 15.7 % (11.9-15.9); WHITE BLOOD COUNT 5.9 K/mm3 (4.0-10.0)
[2023-02-14 12:13] LABS: POTASSIUM 4.2 mmol/L (3.5-5.1)
[2023-02-14 12:15] LABS: BLOOD UREA NITROGEN 21.2 mg/dL (7-18); CALCIUM 8.8 mg/dL (8.5-10.1)
[2023-02-14 12:16] LABS: ALBUMIN 3.9 g/dl (3.4-5.0); MAGNESIUM 2.2 mg/dL (1.8-2.4)
[2023-02-14 12:18] LABS: BILIRUBIN,DIRECT 0.2 mg/dL (0.0-0.2)
[2023-02-14 12:19] LABS: CREATININE 0.7 mg/dL (0.55-1.3)
[2023-02-14 12:20] LABS: BILIRUBIN,TOTAL 0.6 mg/dL (0.2-1); TOT PROT 7.1 g/dl (6.4-8.2)
[2023-02-14 12:21] LABS: ANISOCYTOSIS 2+; OVALOCYTE 1+; TEAR DROP CELLS 1+
[2023-02-14 16:24] VITALS: BP 131/67; PULSE 73; RESP 18; TEMP 98.1
== END 2023-02-14 12:30 | disposition home or self-care (01) ==
LOC: JONCCHEMO 10:30 → J7W 10:33 → JONCCHEMO 12:30
PROVIDERS: ATTEND Internal Medicine Hematology & Oncology
PROC: 3E013GC Introduction of Other Therapeutic Substance into Subcutaneous Tissue, Percutaneous Approach (ICD-10-PCS; principal; 2023-02-14)
DX: C61 Malignant neoplasm of prostate (principal); Z76.89 Persons encountering health services in other specified circumstances
CPT/HCPCS: 36415; 80048; 80076; 83735; 84153; 84402; 84403; 85025; 96372; J0897

== ENCOUNTER 2023-03-14 10:02 | Day surgery (SDC) | payer OTHER ==
[~2023-03-14 10:02] MED LIST changes: -LEUPROLIDE ACETATE (ELIGARD) 22.5 MG SYRINGE SQ ONE
[2023-03-14 10:50] LABS: BASO % 0.3 % (0-2.0); EOS % 0.7 % (0-4.5); HEMATOCRIT 39.4 % (35.4-49); HEMOGLOBIN 12.5 GM/dL (11.7-16.9); LYMPH % 32.9 % (8-40); MCH 20.4 pg (25.7-33.7); MCHC 31.7 g/dl (32.0-35.9); MEAN CELL VOLUME 64.3 fl (80-96); MEAN PLT VOLUME 7.9 fl (7.5-11.1); NEUT % 58.1 % (42.8-82.8); PLATELET COUNT 225 10^3/uL (134-434); RBC 6.14 M/mm3 (4.00-5.60); RDW 15.8 % (11.9-15.9)
[2023-03-14 10:58] LABS: POTASSIUM 4.4 mmol/L (3.5-5.1)
[2023-03-14 11:00] LABS: BLOOD UREA NITROGEN 22.5 mg/dL (7-18); CALCIUM 9.4 mg/dL (8.5-10.1)
[2023-03-14 11:01] LABS: MAGNESIUM 2.2 mg/dL (1.8-2.4)
[2023-03-14 11:03] LABS: BILIRUBIN,DIRECT 0.1 mg/dL (0.0-0.2); IRON SERUM 90 ug/dL (50-175)
[2023-03-14 11:04] LABS: CREATININE 0.8 mg/dL (0.55-1.3)
[2023-03-14 11:05] LABS: BILIRUBIN,TOTAL 0.6 mg/dL (0.2-1); TOT PROT 7.2 g/dl (6.4-8.2)
[2023-03-14 11:07] LABS: TOTAL IRON BINDING CAPACITY 282 ug/dL (250-450)
[2023-03-14 11:19] LABS: ANISOCYTOSIS 2+; MACROCYTOSIS 0; OVALOCYTE 1+; TEAR DROP CELLS 2+
[2023-03-14 16:21] VITALS: BP 133/72; PULSE 75; RESP 18; TEMP 98
== END 2023-03-14 11:00 | disposition home or self-care (01) ==
LOC: JONCCHEMO 10:02
PROVIDERS: ATTEND Internal Medicine Hematology & Oncology
PROC: 3E013GC Introduction of Other Therapeutic Substance into Subcutaneous Tissue, Percutaneous Approach (ICD-10-PCS; principal; 2023-03-14)
DX: C61 Malignant neoplasm of prostate (principal); Z76.89 Persons encountering health services in other specified circumstances
CPT/HCPCS: 36415; 80048; 80076; 82607; 82728; 83021; 83540; 83550; 83735; 84153; 84402; 84403; 84439; 84443; 85025; 85660; 96372; J0897

== ENCOUNTER 2023-04-10 09:15 | Day surgery (SDC) | payer OTHER ==
[2023-04-10] MEDS ORDERED: DENOSUMAB 120 MG/1.7 ML VIAL SQ ONE (10:00)
[2023-04-10] MEDS ORDERED: LEUPROLIDE ACETATE 22.5 MG DIS IM ONE (10:00)
[2023-04-10 10:08] LABS: BASO % 0.5 % (0-2.0); EOS % 0.7 % (0-4.5); HEMOGLOBIN 12.3 GM/dL (11.7-16.9); LYMPH % 33.9 % (8-40); MCH 20.6 pg (25.7-33.7); MCHC 31.6 g/dl (32.0-35.9); MEAN CELL VOLUME 65.1 fl (80-96); MEAN PLT VOLUME 8.1 fl (7.5-11.1); MONO % 8.6 % (3.8-10.2); NEUT % 56.3 % (42.8-82.8); PLATELET COUNT 239 10^3/uL (134-434); RDW 15.6 % (11.9-15.9); WHITE BLOOD COUNT 5.8 K/mm3 (4.0-10.0)
[2023-04-10 10:35] LABS: POTASSIUM 4.4 mmol/L (3.5-5.1)
[2023-04-10 10:37] LABS: CALCIUM 9.2 mg/dL (8.5-10.1)
[2023-04-10 10:38] LABS: ALBUMIN 4.2 g/dl (3.4-5.0); BLOOD UREA NITROGEN 21.9 mg/dL (7-18); MAGNESIUM 2.1 mg/dL (1.8-2.4)
[2023-04-10 10:40] LABS: BILIRUBIN,DIRECT 0.1 mg/dL (0.0-0.2)
[2023-04-10 10:41] LABS: CREATININE 0.8 mg/dL (0.55-1.3)
[2023-04-10 10:42] LABS: BILIRUBIN,TOTAL 0.5 mg/dL (0.2-1); TOT PROT 7.5 g/dl (6.4-8.2)
[2023-04-10 11:52] LABS: ANISOCYTOSIS 3+; MACROCYTOSIS 0; OVALOCYTE 1+; TEAR DROP CELLS 1+
[2023-04-10 13:07] VITALS: BP 117/78; PULSE 73; RESP 18; TEMP 98
== END 2023-04-10 10:30 | disposition home or self-care (01) ==
LOC: JONCCHEMO 09:15 → J7W 09:18 → JONCCHEMO 10:30
PROVIDERS: ATTEND Internal Medicine Hematology & Oncology
PROC: 3E01305 Introduction of Other Antineoplastic into Subcutaneous Tissue, Percutaneous Approach (ICD-10-PCS; principal; 2023-04-10)
PROC: 3E013GC Introduction of Other Therapeutic Substance into Subcutaneous Tissue, Percutaneous Approach (ICD-10-PCS; 2023-04-10)
DX: Z51.11 Encounter for antineoplastic chemotherapy (principal); C61 Malignant neoplasm of prostate; C77.1 Secondary and unspecified malignant neoplasm of intrathoracic lymph nodes
CPT/HCPCS: 36415; 80048; 80076; 83735; 84153; 84402; 84403; 85025; 96372; 96402; J0897; J9217

== ENCOUNTER 2023-05-09 09:58 | Day surgery (SDC) | payer OTHER ==
[2023-05-09] MEDS ORDERED: DENOSUMAB 120 MG/1.7 ML VIAL SQ ONE (10:00)
[2023-05-09 10:46] LABS: BASO % 0.4 % (0-2.0); EOS % 1.1 % (0-4.5); HEMATOCRIT 37.9 % (35.4-49); HEMOGLOBIN 11.9 GM/dL (11.7-16.9); MCH 20.2 pg (25.7-33.7); MCHC 31.4 g/dl (32.0-35.9); MEAN CELL VOLUME 64.3 fl (80-96); MEAN PLT VOLUME 8.3 fl (7.5-11.1); MONO % 6.8 % (3.8-10.2); NEUT % 69.7 % (42.8-82.8); PLATELET COUNT 273 10^3/uL (134-434); RBC 5.89 M/mm3 (4.00-5.60); RDW 15.5 % (11.9-15.9); WHITE BLOOD COUNT 8.1 K/mm3 (4.0-10.0)
[2023-05-09 11:18] LABS: CALCIUM 10.2 mg/dL (8.5-10.1)
[2023-05-09 11:19] LABS: ALBUMIN 3.6 g/dl (3.4-5.0); BLOOD UREA NITROGEN 23.5 mg/dL (7-18); MAGNESIUM 2.2 mg/dL (1.8-2.4)
[2023-05-09 11:22] LABS: BILIRUBIN,DIRECT 0.2 mg/dL (0.0-0.2); CREATININE 0.8 mg/dL (0.55-1.3)
[2023-05-09 11:24] LABS: BILIRUBIN,TOTAL 0.6 mg/dL (0.2-1); TOT PROT 7.6 g/dl (6.4-8.2)
[2023-05-09 12:05] LABS: ANISOCYTOSIS 3+; MACROCYTOSIS 0
[2023-05-09 17:58] VITALS: BP 129/56; PULSE 79; RESP 20; TEMP 97.7
== END 2023-05-09 11:00 | disposition home or self-care (01) ==
LOC: JONCCHEMO 09:58 → J7W 10:03 → JONCCHEMO 11:00
PROVIDERS: ATTEND Internal Medicine Hematology & Oncology
DX: C61 Malignant neoplasm of prostate (principal); C77.1 Secondary and unspecified malignant neoplasm of intrathoracic lymph nodes; Z76.89 Persons encountering health services in other specified circumstances
CPT/HCPCS: 36415; 80048; 80076; 83036; 83735; 84153; 84402; 84403; 85025; 96372; J0897

== ENCOUNTER 2023-06-06 09:46 | Day surgery (SDC) | payer OTHER ==
[2023-06-06] MEDS ORDERED: DENOSUMAB 120 MG/1.7 ML VIAL SQ ONE (10:00)
[2023-06-06 10:18] LABS: BASO % 0.5 % (0-2.0); EOS % 1.9 % (0-4.5); HEMATOCRIT 38.1 % (35.4-49); MCH 20.6 pg (25.7-33.7); MCHC 31.6 g/dl (32.0-35.9); MEAN CELL VOLUME 65.1 fl (80-96); MONO % 7.4 % (3.8-10.2); NEUT % 51.2 % (42.8-82.8); PLATELET COUNT 220 10^3/uL (134-434); RBC 5.86 M/mm3 (4.00-5.60); RDW 16.6 % (11.9-15.9); WHITE BLOOD COUNT 6.3 K/mm3 (4.0-10.0)
[2023-06-06 10:34] LABS: POTASSIUM 4.2 mmol/L (3.5-5.1)
[2023-06-06 10:37] LABS: BLOOD UREA NITROGEN 22.4 mg/dL (7-18); MAGNESIUM 2.3 mg/dL (1.8-2.4)
[2023-06-06 10:38] LABS: ALBUMIN 4.1 g/dl (3.4-5.0)
[2023-06-06 10:40] LABS: BILIRUBIN,DIRECT 0.2 mg/dL (0.0-0.2); CREATININE 0.9 mg/dL (0.55-1.3)
[2023-06-06 10:42] LABS: BILIRUBIN,TOTAL 0.7 mg/dL (0.2-1); TOT PROT 7.8 g/dl (6.4-8.2)
[2023-06-06 17:26] VITALS: BP 127/70; PULSE 68; RESP 20; TEMP 98.3
== END 2023-06-06 11:30 | disposition home or self-care (01) ==
LOC: JONCCHEMO 09:46 → J7W 09:47 → JONCCHEMO 11:30
PROVIDERS: ATTEND Internal Medicine Hematology & Oncology
PROC: 3E013GC Introduction of Other Therapeutic Substance into Subcutaneous Tissue, Percutaneous Approach (ICD-10-PCS; principal; 2023-06-06)
DX: C61 Malignant neoplasm of prostate (principal); C77.1 Secondary and unspecified malignant neoplasm of intrathoracic lymph nodes; Z76.89 Persons encountering health services in other specified circumstances
CPT/HCPCS: 36415; 80048; 80076; 83735; 84153; 84402; 84403; 85025; 96372; J0897

== ENCOUNTER 2023-07-04 09:25 | Day surgery (SDC) | payer OTHER ==
[2023-07-04 10:06] LABS: BASO % 0.5 % (0-2.0); EOS % 0.9 % (0-4.5); HEMATOCRIT 36.7 % (35.4-49); HEMOGLOBIN 11.7 GM/dL (11.7-16.9); LYMPH % 35.1 % (8-40); MCH 20.9 pg (25.7-33.7); MEAN CELL VOLUME 65.1 fl (80-96); MEAN PLT VOLUME 8.2 fl (7.5-11.1); MONO % 7.6 % (3.8-10.2); NEUT % 55.9 % (42.8-82.8); PLATELET COUNT 222 10^3/uL (134-434); RBC 5.63 M/mm3 (4.00-5.60); RDW 16.9 % (11.9-15.9); WHITE BLOOD COUNT 5.3 K/mm3 (4.0-10.0)
[2023-07-04 10:33] LABS: POTASSIUM 4.3 mmol/L (3.5-5.1)
[2023-07-04 10:36] LABS: ALBUMIN 3.8 g/dl (3.4-5.0); BLOOD UREA NITROGEN 22.4 mg/dL (7-18)
[2023-07-04 10:37] LABS: CALCIUM 9.1 mg/dL (8.5-10.1)
[2023-07-04 10:38] LABS: MAGNESIUM 2.3 mg/dL (1.8-2.4)
[2023-07-04 10:39] LABS: BILIRUBIN,DIRECT 0.1 mg/dL (0.0-0.2); CREATININE 0.8 mg/dL (0.55-1.3)
[2023-07-04 10:40] LABS: BILIRUBIN,TOTAL 0.6 mg/dL (0.2-1); TOT PROT 7.2 g/dl (6.4-8.2)
[2023-07-04 10:43] LABS: ANISOCYTOSIS 3+; MACROCYTOSIS 0
[2023-07-04 10:58] VITALS: BP 124/60; PULSE 74; RESP 20; TEMP 98
[2023-07-04] MEDS: LEUPROLIDE ACETATE 22.5 MG DIS IM ONE (11:10)
[2023-07-04] MEDS: DENOSUMAB 120 MG/1.7 ML VIAL SQ ONE (11:11)
== END 2023-07-04 11:45 | disposition home or self-care (01) ==
LOC: JONCCHEMO 09:25 → J7W 09:25 → JONCCHEMO 11:45
PROVIDERS: ATTEND Internal Medicine Hematology & Oncology
PROC: 3E013GC Introduction of Other Therapeutic Substance into Subcutaneous Tissue, Percutaneous Approach (ICD-10-PCS; principal; 2023-07-04)
PROC: 3E013GC Introduction of Other Therapeutic Substance into Subcutaneous Tissue, Percutaneous Approach (ICD-10-PCS; 2023-07-04)
DX: C61 Malignant neoplasm of prostate (principal); C77.1 Secondary and unspecified malignant neoplasm of intrathoracic lymph nodes; Z76.89 Persons encountering health services in other specified circumstances
CPT/HCPCS: 36415; 80048; 80076; 83735; 84153; 84154; 84402; 84403; 85025; 96372; 96402; J0897; J9217

== ENCOUNTER 2023-08-01 10:23 | Day surgery (SDC) | payer OTHER ==
[2023-08-01] MEDS: DENOSUMAB 120 MG/1.7 ML VIAL SQ ONE (10:54)
[2023-08-01 10:57] LABS: BASO % 0.4 % (0-2.0); HEMATOCRIT 38.6 % (35.4-49); LYMPH % 27.9 % (8-40); MCH 20.3 pg (25.7-33.7); MEAN CELL VOLUME 65.5 fl (80-96); MEAN PLT VOLUME 8.1 fl (7.5-11.1); MONO % 6.8 % (3.8-10.2); NEUT % 63.9 % (42.8-82.8); PLATELET COUNT 232 10^3/uL (134-434); RBC 5.89 M/mm3 (4.00-5.60); RDW 15.8 % (11.9-15.9)
[2023-08-01 11:15] VITALS: BP 130/70; PULSE 76; RESP 20; TEMP 97.5
[2023-08-01 11:22] LABS: POTASSIUM 4.2 mmol/L (3.5-5.1)
[2023-08-01 11:24] LABS: ANISOCYTOSIS 1+; CALCIUM 9.5 mg/dL (8.5-10.1); MACROCYTOSIS 0
[2023-08-01 11:25] LABS: ALBUMIN 3.7 g/dl (3.4-5.0); BLOOD UREA NITROGEN 20.7 mg/dL (7-18); MAGNESIUM 1.8 mg/dL (1.8-2.4)
[2023-08-01 11:27] LABS: BILIRUBIN,DIRECT 0.2 mg/dL (0.0-0.2); CREATININE 0.8 mg/dL (0.55-1.3)
[2023-08-01 11:29] LABS: BILIRUBIN,TOTAL 0.6 mg/dL (0.2-1)
== END 2023-08-01 11:40 | disposition home or self-care (01) ==
LOC: JONCCHEMO 10:23 → J7W 10:25 → JONCCHEMO 11:40
PROVIDERS: ATTEND Internal Medicine Hematology & Oncology
PROC: 3E013GC Introduction of Other Therapeutic Substance into Subcutaneous Tissue, Percutaneous Approach (ICD-10-PCS; principal; 2023-08-01)
DX: C61 Malignant neoplasm of prostate (principal); C77.1 Secondary and unspecified malignant neoplasm of intrathoracic lymph nodes
CPT/HCPCS: 36415; 80048; 80076; 83735; 84153; 84402; 84403; 84439; 84443; 85025; 96372; J0897

== ENCOUNTER 2023-08-29 11:00 | Day surgery (SDC) | payer OTHER ==
[2023-08-29] MEDS: DENOSUMAB 120 MG/1.7 ML VIAL SQ ONE (11:35)
[2023-08-29 11:53] LABS: BASO % 0.6 % (0-2.0); EOS % 0.7 % (0-4.5); HEMATOCRIT 39.2 % (35.4-49); HEMOGLOBIN 12.5 GM/dL (11.7-16.9); LYMPH % 32.3 % (8-40); MCH 20.7 pg (25.7-33.7); MCHC 31.8 g/dl (32.0-35.9); MEAN PLT VOLUME 8.6 fl (7.5-11.1); MONO % 7.1 % (3.8-10.2); NEUT % 59.3 % (42.8-82.8); PLATELET COUNT 247 10^3/uL (134-434); RBC 6.04 M/mm3 (4.00-5.60); RDW 15.8 % (11.9-15.9); WHITE BLOOD COUNT 5.2 K/mm3 (4.0-10.0)
[2023-08-29 12:21] LABS: POTASSIUM 4.4 mmol/L (3.5-5.1)
[2023-08-29 12:26] LABS: BILIRUBIN,DIRECT 0.2 mg/dL (0.0-0.2)
[2023-08-29 12:27] LABS: CREATININE 0.7 mg/dL (0.55-1.3)
[2023-08-29 12:28] LABS: BILIRUBIN,TOTAL 0.8 mg/dL (0.2-1); TOT PROT 7.4 g/dl (6.4-8.2)
[2023-08-29 12:33] LABS: CALCIUM 10.1 mg/dL (8.5-10.1)
[2023-08-29 12:34] LABS: ALBUMIN 4.2 g/dl (3.4-5.0); BLOOD UREA NITROGEN 19.2 mg/dL (7-18); MAGNESIUM 2.3 mg/dL (1.8-2.4)
[2023-08-29 15:13] VITALS: BP 129/61; PULSE 73; RESP 20; TEMP 98.6
== END 2023-08-29 12:00 | disposition home or self-care (01) ==
LOC: JONCCHEMO 11:00 → J7W 11:01 → JONCCHEMO 12:00
PROVIDERS: ATTEND Internal Medicine Hematology & Oncology
PROC: 3E013GC Introduction of Other Therapeutic Substance into Subcutaneous Tissue, Percutaneous Approach (ICD-10-PCS; principal; 2023-08-29)
DX: C61 Malignant neoplasm of prostate (principal); C77.1 Secondary and unspecified malignant neoplasm of intrathoracic lymph nodes; Z76.89 Persons encountering health services in other specified circumstances
CPT/HCPCS: 36415; 80048; 80076; 83735; 84153; 84402; 84403; 85025; 96372; J0897

== ENCOUNTER 2023-09-26 10:58 | Day surgery (SDC) | payer OTHER ==
[2023-09-26 11:39] LABS: BASO % 0.3 % (0-2.0); EOS % 0.5 % (0-4.5); HEMATOCRIT 37.6 % (35.4-49); HEMOGLOBIN 12.4 GM/dL (11.7-16.9); LYMPH % 18.3 % (8-40); MCH 21.3 pg (25.7-33.7); MEAN CELL VOLUME 64.6 fl (80-96); MEAN PLT VOLUME 8.1 fl (7.5-11.1); MONO % 7.5 % (3.8-10.2); NEUT % 73.4 % (42.8-82.8); PLATELET COUNT 218 10^3/uL (134-434); RBC 5.82 M/mm3 (4.00-5.60); RDW 15.6 % (11.9-15.9); WHITE BLOOD COUNT 5.9 K/mm3 (4.0-10.0)
[2023-09-26 12:06] LABS: CHLORIDE 107 mmol/L (98-107); POTASSIUM 4.1 mmol/L (3.5-5.1); SODIUM 136 mmol/L (136-145)
[2023-09-26 12:08] LABS: CALCIUM 9.4 mg/dL (8.5-10.1)
[2023-09-26 12:09] LABS: ANION GAP 4 mmol/L (4-13); BLOOD UREA NITROGEN 18.1 mg/dL (7-18); CO2 25 mmol/L (21-32); GLUCOSE,RANDOM 130 mg/dL (74-106); MAGNESIUM 2.2 mg/dL (1.8-2.4)
[2023-09-26 12:11] LABS: BILIRUBIN,DIRECT 0.2 mg/dL (0.0-0.2); SGPT/ALT 22 U/L (13-61)
[2023-09-26 12:12] LABS: CREATININE 0.7 mg/dL (0.55-1.3); SGOT/AST 11 U/L (15-37)
[2023-09-26 12:13] LABS: BILIRUBIN,TOTAL 0.9 mg/dL (0.2-1); TOT PROT 7.1 g/dl (6.4-8.2)
[2023-09-26 12:14] LABS: ALK PHOS 54 U/L (45-117)
[2023-09-26 12:18] LABS: ANISOCYTOSIS 2+; MACROCYTOSIS 0; OVALOCYTE 1+; PLATELET ESTIMATE ADEQUATE
[2023-09-26] MEDS: LEUPROLIDE ACETATE 22.5 MG DIS IM ONE (12:23)
[2023-09-26] MEDS: DENOSUMAB 120 MG/1.7 ML VIAL SQ ONE (12:23)
[2023-09-26 15:34] VITALS: BP 103/66; PULSE 79; RESP 20; TEMP 98.4
== END 2023-09-26 12:40 | disposition home or self-care (01) ==
LOC: JONCCHEMO 10:58 → J7W 10:58 → JONCCHEMO 12:40
PROVIDERS: ATTEND Internal Medicine Hematology & Oncology
PROC: 3E02305 Introduction of Other Antineoplastic into Muscle, Percutaneous Approach (ICD-10-PCS; principal; 2023-09-26)
PROC: 3E013GC Introduction of Other Therapeutic Substance into Subcutaneous Tissue, Percutaneous Approach (ICD-10-PCS; 2023-09-26)
DX: Z51.11 Encounter for antineoplastic chemotherapy (principal)
CPT/HCPCS: 36415; 80048; 80076; 83735; 84153; 84402; 84403; 85025; J0897; J9217

== ENCOUNTER 2023-10-31 11:05 | Day surgery (SDC) | payer OTHER ==
[2023-10-31] MEDS: DENOSUMAB 120 MG/1.7 ML VIAL SQ ONE (11:37)
[2023-10-31 12:30] LABS: CHLORIDE 110 mmol/L (98-107); POTASSIUM 4.3 mmol/L (3.5-5.1); SODIUM 138 mmol/L (136-145)
[2023-10-31 12:33] LABS: CALCIUM 9.1 mg/dL (8.5-10.1)
[2023-10-31 12:34] LABS: ALBUMIN 4.2 g/dl (3.4-5.0); ANION GAP 5 mmol/L (4-13); BLOOD UREA NITROGEN 19.6 mg/dL (7-18); CO2 23 mmol/L (21-32); GLUCOSE,RANDOM 97 mg/dL (74-106); MAGNESIUM 2.4 mg/dL (1.8-2.4)
[2023-10-31 12:36] LABS: BILIRUBIN,DIRECT 0.1 mg/dL (0.0-0.2)
[2023-10-31 12:37] LABS: CREATININE 0.7 mg/dL (0.55-1.3); SGOT/AST 17 U/L (15-37); SGPT/ALT 20 U/L (13-61)
[2023-10-31 12:38] LABS: BILIRUBIN,TOTAL 0.7 mg/dL (0.2-1); TOT PROT 7.2 g/dl (6.4-8.2)
[2023-10-31 12:40] LABS: ALK PHOS 50 U/L (45-117)
[2023-10-31 12:50] LABS: BASO % 0.3 % (0-2.0); EOS % 0.7 % (0-4.5); HEMATOCRIT 38.6 % (35.4-49); HEMOGLOBIN 12.1 GM/dL (11.7-16.9); LYMPH % 27.8 % (8-40); MCH 20.5 pg (25.7-33.7); MCHC 31.3 g/dl (32.0-35.9); MEAN CELL VOLUME 65.5 fl (80-96); MEAN PLT VOLUME 8.3 fl (7.5-11.1); MONO % 7.4 % (3.8-10.2); NEUT % 63.8 % (42.8-82.8); PLATELET COUNT 212 10^3/uL (134-434); WHITE BLOOD COUNT 5.9 K/mm3 (4.0-10.0)
[2023-10-31 13:22] LABS: ANISOCYTOSIS 2+; MACROCYTOSIS 0
[2023-10-31 17:24] VITALS: BP 120/64; PULSE 70; RESP 20; TEMP 97.6
== END 2023-10-31 11:45 | disposition home or self-care (01) ==
LOC: JONCCHEMO 11:05 → J7W 11:06 → JONCCHEMO 11:45
PROVIDERS: ATTEND Internal Medicine Hematology & Oncology
PROC: 3E013GC Introduction of Other Therapeutic Substance into Subcutaneous Tissue, Percutaneous Approach (ICD-10-PCS; principal; 2023-10-31)
DX: C61 Malignant neoplasm of prostate (principal); Z76.89 Persons encountering health services in other specified circumstances
CPT/HCPCS: 36415; 80048; 80076; 83735; 84153; 84154; 84402; 84403; 85025; 96372; J0897

== ENCOUNTER 2023-11-28 10:19 | Day surgery (SDC) | payer OTHER ==
[2023-11-28] MEDS: DENOSUMAB 120 MG/1.7 ML VIAL SQ ONE (10:49)
[2023-11-28 11:16] LABS: EOS % 0.7 % (0-4.5); HEMATOCRIT 38.7 % (35.4-49); HEMOGLOBIN 12.2 GM/dL (11.7-16.9); LYMPH % 28.6 % (8-40); MCH 20.5 pg (25.7-33.7); MCHC 31.6 g/dl (32.0-35.9); MEAN CELL VOLUME 64.9 fl (80-96); MEAN PLT VOLUME 8.4 fl (7.5-11.1); MONO % 6.9 % (3.8-10.2); NEUT % 63.1 % (42.8-82.8); PLATELET COUNT 234 10^3/uL (134-434); RBC 5.97 M/mm3 (4.00-5.60); RDW 16.2 % (11.9-15.9); WHITE BLOOD COUNT 5.8 K/mm3 (4.0-10.0)
[2023-11-28 11:17] LABS: BASO % 0.7 % (0-2.0)
[2023-11-28 11:32] LABS: POTASSIUM 4.2 mmol/L (3.5-5.1)
[2023-11-28 11:34] LABS: CALCIUM 9.7 mg/dL (8.5-10.1)
[2023-11-28 11:35] LABS: BLOOD UREA NITROGEN 20.9 mg/dL (7-18); MAGNESIUM 2.2 mg/dL (1.8-2.4)
[2023-11-28 11:37] LABS: BILIRUBIN,DIRECT 0.2 mg/dL (0.0-0.2)
[2023-11-28 11:38] LABS: CREATININE 0.6 mg/dL (0.55-1.3)
[2023-11-28 11:39] LABS: BILIRUBIN,TOTAL 0.7 mg/dL (0.2-1); TOT PROT 7.3 g/dl (6.4-8.2)
[2023-11-28 11:57] LABS: ANISOCYTOSIS 3+; MACROCYTOSIS 0; OVALOCYTE 1+; TEAR DROP CELLS 1+
[2023-11-28 12:47] VITALS: BP 136/67; PULSE 66; RESP 20; TEMP 97.9
== END 2023-11-28 11:40 | disposition home or self-care (01) ==
LOC: JONCCHEMO 10:19 → J7W 10:20 → JONCCHEMO 11:40
PROVIDERS: ATTEND Internal Medicine Hematology & Oncology
PROC: 3E013GC Introduction of Other Therapeutic Substance into Subcutaneous Tissue, Percutaneous Approach (ICD-10-PCS; principal; 2023-11-28)
DX: C61 Malignant neoplasm of prostate (principal); C79.51 Secondary malignant neoplasm of bone; D35.2 Benign neoplasm of pituitary gland; Z76.89 Persons encountering health services in other specified circumstances
CPT/HCPCS: 36415; 80048; 80076; 83735; 84153; 84402; 84403; 85025; 96372; J0897

== ENCOUNTER 2023-12-26 10:02 | Day surgery (SDC) | payer OTHER ==
[2023-12-26 10:45] LABS: BASO % 0.5 % (0-2.0); EOS % 0.9 % (0-4.5); HEMOGLOBIN 11.8 GM/dL (11.7-16.9); LYMPH % 32.8 % (8-40); MCH 20.9 pg (25.7-33.7); MEAN CELL VOLUME 65.4 fl (80-96); MEAN PLT VOLUME 7.8 fl (7.5-11.1); MONO % 7.7 % (3.8-10.2); NEUT % 58.1 % (42.8-82.8); PLATELET COUNT 235 10^3/uL (134-434); RBC 5.65 M/mm3 (4.00-5.60); RDW 15.5 % (11.9-15.9)
[2023-12-26] MEDS: LEUPROLIDE ACETATE 22.5 MG DIS IM ONE (10:52)
[2023-12-26] MEDS: DENOSUMAB 120 MG/1.7 ML VIAL SQ ONE (10:52)
[2023-12-26 11:04] LABS: ANISOCYTOSIS 2+; MACROCYTOSIS 0; OVALOCYTE 1+; TARGET CELLS 1+; TEAR DROP CELLS 1+
[2023-12-26 11:11] LABS: CHLORIDE 107 mmol/L (98-107); POTASSIUM 4.3 mmol/L (3.5-5.1); SODIUM 140 mmol/L (136-145)
[2023-12-26 11:12] LABS: CALCIUM 9.7 mg/dL (8.5-10.1)
[2023-12-26 11:13] LABS: ALBUMIN 3.8 g/dl (3.4-5.0); ANION GAP 8 mmol/L (4-13); BLOOD UREA NITROGEN 24.5 mg/dL (7-18); CO2 25 mmol/L (21-32); GLUCOSE,RANDOM 108 mg/dL (74-106)
[2023-12-26 11:15] LABS: BILIRUBIN,DIRECT 0.2 mg/dL (0.0-0.2)
[2023-12-26 11:16] LABS: CREATININE 0.7 mg/dL (0.55-1.3); SGOT/AST 14 U/L (15-37); SGPT/ALT 21 U/L (13-61)
[2023-12-26 11:17] LABS: BILIRUBIN,TOTAL 0.7 mg/dL (0.2-1); TOT PROT 7.1 g/dl (6.4-8.2)
[2023-12-26 11:19] LABS: ALK PHOS 45 U/L (45-117)
[2023-12-26 18:08] VITALS: BP 114/56; PULSE 70; RESP 20; TEMP 97.6
== END 2023-12-26 11:15 | disposition home or self-care (01) ==
LOC: JONCNONCHE 10:02 → J7W 10:03 → JONCNONCHE 11:15
PROVIDERS: ATTEND Internal Medicine Hematology & Oncology
PROC: 3E013GC Introduction of Other Therapeutic Substance into Subcutaneous Tissue, Percutaneous Approach (ICD-10-PCS; principal; 2023-12-26)
PROC: 3E013GC Introduction of Other Therapeutic Substance into Subcutaneous Tissue, Percutaneous Approach (ICD-10-PCS; 2023-12-26)
DX: C61 Malignant neoplasm of prostate (principal); C79.51 Secondary malignant neoplasm of bone; Z76.89 Persons encountering health services in other specified circumstances
CPT/HCPCS: 36415; 80048; 80076; 83735; 84153; 84154; 84402; 84403; 85025; 96372; J0897; J9217

== ENCOUNTER 2024-01-22 09:09 | Day surgery (SDC) | payer OTHER ==
[2024-01-22 10:01] LABS: BASO % 0.8 % (0-2.0); EOS % 1.2 % (0-4.5); HEMATOCRIT 37.7 % (35.4-49); HEMOGLOBIN 12.1 GM/dL (11.7-16.9); LYMPH % 26.3 % (8-40); MCH 20.9 pg (25.7-33.7); MCHC 32.1 g/dl (32.0-35.9); MEAN CELL VOLUME 65.1 fl (80-96); MEAN PLT VOLUME 8.1 fl (7.5-11.1); MONO % 5.7 % (3.8-10.2); PLATELET COUNT 222 10^3/uL (134-434); RDW 15.9 % (11.9-15.9)
[2024-01-22] MEDS: DENOSUMAB 120 MG/1.7 ML VIAL SQ ONE (10:19)
[2024-01-22 10:29] LABS: CHLORIDE 106 mmol/L (98-107); POTASSIUM 4.1 mmol/L (3.5-5.1); SODIUM 137 mmol/L (136-145)
[2024-01-22 10:35] LABS: ALBUMIN 3.9 g/dl (3.4-5.0); ANION GAP 7 mmol/L (4-13); BLOOD UREA NITROGEN 23.8 mg/dL (7-18); CALCIUM 9.6 mg/dL (8.5-10.1); CO2 25 mmol/L (21-32)
[2024-01-22 10:36] LABS: GLUCOSE,RANDOM 138 mg/dL (74-106); MAGNESIUM 1.9 mg/dL (1.8-2.4)
[2024-01-22 10:38] LABS: SGOT/AST 12 U/L (15-37); SGPT/ALT 20 U/L (13-61)
[2024-01-22 10:39] LABS: BILIRUBIN,DIRECT 0.2 mg/dL (0.0-0.2); CREATININE 0.8 mg/dL (0.55-1.3)
[2024-01-22 10:40] LABS: BILIRUBIN,TOTAL 0.7 mg/dL (0.2-1)
[2024-01-22 10:41] LABS: ALK PHOS 44 U/L (45-117)
[2024-01-22 12:47] LABS: ANISOCYTOSIS 0; MACROCYTOSIS 0
[2024-01-22 16:41] VITALS: BP 111/65; PULSE 73; RESP 20; TEMP 97.5
== END 2024-01-22 10:30 | disposition home or self-care (01) ==
LOC: JONCCHEMO 09:09 → J7W 09:12 → JONCCHEMO 10:30
PROVIDERS: ATTEND Internal Medicine Hematology & Oncology
PROC: 3E013GC Introduction of Other Therapeutic Substance into Subcutaneous Tissue, Percutaneous Approach (ICD-10-PCS; principal; 2024-01-22)
DX: Z76.89 Persons encountering health services in other specified circumstances (principal); C61 Malignant neoplasm of prostate
CPT/HCPCS: 36415; 80048; 80076; 83735; 84153; 84402; 84403; 85025; 96372; J0897

== ENCOUNTER 2024-02-20 09:12 | Day surgery (SDC) | payer OTHER ==
[2024-02-20] MEDS: DENOSUMAB 120 MG/1.7 ML VIAL SQ ONE (09:36)
[2024-02-20 09:57] LABS: BASO % 0.5 % (0-2.0); EOS % 1.6 % (0-4.5); HEMATOCRIT 37.7 % (35.4-49); HEMOGLOBIN 12.1 GM/dL (11.7-16.9); LYMPH % 32.5 % (8-40); MCH 20.8 pg (25.7-33.7); MEAN CELL VOLUME 64.9 fl (80-96); MEAN PLT VOLUME 7.9 fl (7.5-11.1); NEUT % 58.4 % (42.8-82.8); PLATELET COUNT 217 10^3/uL (134-434); RBC 5.81 M/mm3 (4.00-5.60); RDW 15.8 % (11.9-15.9)
[2024-02-20 10:46] LABS: ANISOCYTOSIS 3+; MACROCYTOSIS 0
[2024-02-20 11:05] LABS: CHLORIDE 108 mmol/L (98-107); POTASSIUM 4.8 mmol/L (3.5-5.1); SODIUM 140 mmol/L (136-145)
[2024-02-20 11:07] LABS: ANION GAP 6 mmol/L (4-13); BLOOD UREA NITROGEN 27.4 mg/dL (7-18); CALCIUM 9.6 mg/dL (8.5-10.1); CO2 26 mmol/L (21-32); GLUCOSE,RANDOM 113 mg/dL (74-106); MAGNESIUM 2.1 mg/dL (1.8-2.4)
[2024-02-20 11:11] LABS: BILIRUBIN,DIRECT 0.2 mg/dL (0.0-0.2); CREATININE 0.8 mg/dL (0.55-1.3); SGOT/AST 13 U/L (15-37); SGPT/ALT 21 U/L (13-61)
[2024-02-20 11:12] LABS: BILIRUBIN,TOTAL 0.7 mg/dL (0.2-1)
[2024-02-20 11:13] LABS: ALK PHOS 45 U/L (45-117); TOT PROT 7.1 g/dl (6.4-8.2)
[2024-02-20 17:05] VITALS: BP 110/56; PULSE 72; RESP 18; TEMP 97.6
== END 2024-02-20 09:45 | disposition home or self-care (01) ==
LOC: JONCCHEMO 09:12 → J7W 09:13 → JONCCHEMO 09:45
PROVIDERS: ATTEND Internal Medicine Hematology & Oncology
PROC: 3E013GC Introduction of Other Therapeutic Substance into Subcutaneous Tissue, Percutaneous Approach (ICD-10-PCS; principal; 2024-02-20)
DX: C61 Malignant neoplasm of prostate (principal); C79.51 Secondary malignant neoplasm of bone
CPT/HCPCS: 36415; 80048; 80076; 83735; 84153; 84402; 84403; 85025; 96372; J0897

== ENCOUNTER 2024-03-19 09:33 | Day surgery (SDC) | payer OTHER ==
[2024-03-19 09:43] VITALS: BP 143/66; PULSE 70; RESP 20; TEMP 98
[2024-03-19] MEDS: DENOSUMAB 120 MG/1.7 ML VIAL SQ ONE (10:06)
[2024-03-19] MEDS: LEUPROLIDE ACETATE 22.5 MG DIS IM ONE (10:06)
[2024-03-19 10:18] LABS: BASO % 0.5 % (0-2.0); EOS % 1.5 % (0-4.5); HEMATOCRIT 36.7 % (35.4-49); HEMOGLOBIN 11.4 GM/dL (11.7-16.9); LYMPH % 29.5 % (8-40); MCH 20.3 pg (25.7-33.7); MEAN CELL VOLUME 65.3 fl (80-96); MEAN PLT VOLUME 8.3 fl (7.5-11.1); MONO % 8.5 % (3.8-10.2); PLATELET COUNT 215 10^3/uL (134-434); RBC 5.63 M/mm3 (4.00-5.60); RDW 15.6 % (11.9-15.9); WHITE BLOOD COUNT 5.9 K/mm3 (4.0-10.0)
[2024-03-19 10:45] LABS: CHLORIDE 106 mmol/L (98-107); POTASSIUM 4.2 mmol/L (3.5-5.1); SODIUM 139 mmol/L (136-145)
[2024-03-19 10:53] LABS: ANION GAP 7 mmol/L (4-13); CO2 26 mmol/L (21-32); GLUCOSE,RANDOM 107 mg/dL (74-106); MAGNESIUM 2.2 mg/dL (1.8-2.4)
[2024-03-19 10:55] LABS: CALCIUM 9.6 mg/dL (8.5-10.1); CREATININE 0.8 mg/dL (0.55-1.3)
[2024-03-19 10:56] LABS: ALBUMIN 3.7 g/dl (3.4-5.0)
[2024-03-19 10:58] LABS: BILIRUBIN,DIRECT 0.2 mg/dL (0.0-0.2)
[2024-03-19 11:00] LABS: BILIRUBIN,TOTAL 0.6 mg/dL (0.2-1); TOT PROT 6.8 g/dl (6.4-8.2)
[2024-03-19 11:56] LABS: ANISOCYTOSIS 1+; MACROCYTOSIS 0
== END 2024-03-19 10:45 | disposition home or self-care (01) ==
LOC: JONCCHEMO 09:33 → J7W 09:34 → JONCCHEMO 10:45
PROVIDERS: ATTEND Internal Medicine Hematology & Oncology
PROC: 3E013GC Introduction of Other Therapeutic Substance into Subcutaneous Tissue, Percutaneous Approach (ICD-10-PCS; principal; 2024-03-19)
PROC: 3E013GC Introduction of Other Therapeutic Substance into Subcutaneous Tissue, Percutaneous Approach (ICD-10-PCS; 2024-03-19)
DX: C61 Malignant neoplasm of prostate (principal); C79.52 Secondary malignant neoplasm of bone marrow; Z76.89 Persons encountering health services in other specified circumstances
CPT/HCPCS: 36415; 80048; 80076; 82306; 83735; 84153; 84402; 84403; 85025; 96372; J0897; J9217

== ENCOUNTER 2024-04-16 10:31 | Day surgery (SDC) | payer OTHER ==
[2024-04-16] MEDS: DENOSUMAB 120 MG/1.7 ML VIAL SQ ONE (10:58)
[2024-04-16 11:32] LABS: BASO % 0.5 % (0-2.0); EOS % 0.7 % (0-4.5); HEMATOCRIT 38.9 % (35.4-49); HEMOGLOBIN 12.3 GM/dL (11.7-16.9); MCH 20.6 pg (25.7-33.7); MCHC 31.6 g/dl (32.0-35.9); MEAN PLT VOLUME 8.4 fl (7.5-11.1); MONO % 8.4 % (3.8-10.2); NEUT % 63.4 % (42.8-82.8); PLATELET COUNT 235 10^3/uL (134-434); RBC 5.98 M/mm3 (4.00-5.60); RDW 15.9 % (11.9-15.9)
[2024-04-16 11:54] LABS: CHLORIDE 108 mmol/L (98-107); POTASSIUM 4.2 mmol/L (3.5-5.1); SODIUM 140 mmol/L (136-145)
[2024-04-16 11:58] LABS: ALBUMIN 4.1 g/dl (3.4-5.0); ANION GAP 6 mmol/L (4-13); CO2 26 mmol/L (21-32); MAGNESIUM 2.1 mg/dL (1.8-2.4)
[2024-04-16 12:00] LABS: GLUCOSE,RANDOM 130 mg/dL (74-106)
[2024-04-16 12:02] LABS: BILIRUBIN,DIRECT 0.2 mg/dL (0.0-0.2); CREATININE 0.8 mg/dL (0.55-1.3); IRON SERUM 96 ug/dL (50-175); SGOT/AST 14 U/L (15-37); TOTAL IRON BINDING CAPACITY 284 ug/dL (250-450)
[2024-04-16 12:03] LABS: BILIRUBIN,TOTAL 0.6 mg/dL (0.2-1); TOT PROT 7.2 g/dl (6.4-8.2)
[2024-04-16 12:04] LABS: ALK PHOS 45 U/L (45-117)
[2024-04-16 12:17] LABS: SGPT/ALT 22 U/L (13-61)
[2024-04-16 12:21] LABS: ANISOCYTOSIS 0; MACROCYTOSIS 0; OVALOCYTE 1+; TARGET CELLS 1+; TEAR DROP CELLS 1+
[2024-04-16 16:53] VITALS: BP 128/62; PULSE 71; RESP 16; TEMP 97.8
== END 2024-04-16 11:15 | disposition home or self-care (01) ==
LOC: JONCCHEMO 10:31 → J7W 10:32 → JONCCHEMO 11:15
PROVIDERS: ATTEND Internal Medicine Hematology & Oncology
PROC: 3E013GC Introduction of Other Therapeutic Substance into Subcutaneous Tissue, Percutaneous Approach (ICD-10-PCS; principal; 2024-04-16)
DX: C61 Malignant neoplasm of prostate (principal); C79.52 Secondary malignant neoplasm of bone marrow
CPT/HCPCS: 36415; 80048; 80076; 82306; 82728; 83540; 83550; 83735; 84153; 84154; 85025; 96372; J0897

== ENCOUNTER 2024-05-14 10:51 | Day surgery (SDC) | payer OTHER ==
[2024-05-14] MEDS: DENOSUMAB 120 MG/1.7 ML VIAL SQ ONE (11:01)
[2024-05-14 11:40] LABS: BASO % 0.4 % (0-2.0); EOS % 0.7 % (0-4.5); HEMATOCRIT 38.1 % (35.4-49); HEMOGLOBIN 12.4 GM/dL (11.7-16.9); LYMPH % 27.6 % (8-40); MCH 20.9 pg (25.7-33.7); MCHC 32.4 g/dl (32.0-35.9); MEAN CELL VOLUME 64.3 fl (80-96); MEAN PLT VOLUME 7.9 fl (7.5-11.1); MONO % 7.1 % (3.8-10.2); NEUT % 64.2 % (42.8-82.8); PLATELET COUNT 254 10^3/uL (134-434); RBC 5.92 M/mm3 (4.00-5.60); RDW 16.2 % (11.9-15.9); WHITE BLOOD COUNT 6.8 K/mm3 (4.0-10.0)
[2024-05-14 11:51] LABS: CHLORIDE 106 mmol/L (98-107); POTASSIUM 4.3 mmol/L (3.5-5.1); SODIUM 137 mmol/L (136-145)
[2024-05-14 11:53] LABS: ALBUMIN 4.2 g/dl (3.4-5.0); ANION GAP 6 mmol/L (4-13); BLOOD UREA NITROGEN 21.6 mg/dL (7-18); CALCIUM 9.8 mg/dL (8.5-10.1); CO2 24 mmol/L (21-32); MAGNESIUM 2.2 mg/dL (1.8-2.4)
[2024-05-14 11:54] LABS: GLUCOSE,RANDOM 107 mg/dL (74-106)
[2024-05-14 11:56] LABS: BILIRUBIN,DIRECT 0.2 mg/dL (0.0-0.2); CREATININE 0.8 mg/dL (0.55-1.3); SGOT/AST 14 U/L (15-37); SGPT/ALT 21 U/L (13-61)
[2024-05-14 11:58] LABS: BILIRUBIN,TOTAL 0.7 mg/dL (0.2-1); IRON SERUM 98 ug/dL (50-175); TOT PROT 7.5 g/dl (6.4-8.2)
[2024-05-14 11:59] LABS: ALK PHOS 48 U/L (45-117)
[2024-05-14 12:00] LABS: TOTAL IRON BINDING CAPACITY 314 ug/dL (250-450)
[2024-05-14 12:10] LABS: ANISOCYTOSIS 0; MACROCYTOSIS 0; OVALOCYTE 1+; TEAR DROP CELLS 1+
[2024-05-14 14:56] VITALS: BP 126/65; PULSE 73; RESP 20; TEMP 97.8
== END 2024-05-14 11:30 | disposition home or self-care (01) ==
LOC: J7W 10:51 → JONCCHEMO 10:51
PROVIDERS: ATTEND Internal Medicine Hematology & Oncology
DX: C61 Malignant neoplasm of prostate (principal); C79.51 Secondary malignant neoplasm of bone; Z76.89 Persons encountering health services in other specified circumstances
CPT/HCPCS: 36415; 80048; 80076; 82306; 82728; 83540; 83550; 83735; 84153; 84403; 85025; 96372; J0897

== ENCOUNTER 2024-07-09 10:18 | Day surgery (SDC) | payer OTHER ==
[2024-07-09] MEDS: DENOSUMAB 120 MG/1.7 ML VIAL SQ ONE (10:49)
[2024-07-09 11:36] LABS: BASO % 0.5 % (0-2.0); EOS % 1.3 % (0-4.5); HEMATOCRIT 38.9 % (35.4-49); HEMOGLOBIN 12.1 GM/dL (11.7-16.9); LYMPH % 36.5 % (8-40); MCH 20.6 pg (25.7-33.7); MCHC 31.2 g/dl (32.0-35.9); MEAN PLT VOLUME 8.1 fl (7.5-11.1); MONO % 6.6 % (3.8-10.2); NEUT % 55.1 % (42.8-82.8); PLATELET COUNT 221 10^3/uL (134-434); RBC 5.89 M/mm3 (4.00-5.60); RDW 16.1 % (11.9-15.9); WHITE BLOOD COUNT 5.2 K/mm3 (4.0-10.0)
[2024-07-09 11:59] LABS: ANISOCYTOSIS 3+; MACROCYTOSIS 0; ROULEAU 2+; TEAR DROP CELLS 2+
[2024-07-09 12:01] LABS: CHLORIDE 105 mmol/L (98-107); POTASSIUM 4.1 mmol/L (3.5-5.1); SODIUM 138 mmol/L (136-145)
[2024-07-09 12:05] LABS: ALBUMIN 4.1 g/dl (3.4-5.0); ANION GAP 5 mmol/L (4-13); BLOOD UREA NITROGEN 21.6 mg/dL (7-18); CALCIUM 10.1 mg/dL (8.5-10.1); CO2 28 mmol/L (21-32); GLUCOSE,RANDOM 123 mg/dL (74-106)
[2024-07-09 12:08] LABS: BILIRUBIN,DIRECT 0.2 mg/dL (0.0-0.2); CREATININE 0.8 mg/dL (0.55-1.3); SGOT/AST 18 U/L (15-37); SGPT/ALT 20 U/L (13-61)
[2024-07-09 12:10] LABS: BILIRUBIN,TOTAL 0.9 mg/dL (0.2-1); TOT PROT 7.2 g/dl (6.4-8.2)
[2024-07-09 12:11] LABS: ALK PHOS 46 U/L (45-117)
[2024-07-09 16:30] VITALS: BP 129/66; PULSE 74; RESP 20; TEMP 98.2
== END 2024-07-09 11:00 | disposition home or self-care (01) ==
LOC: JONCCHEMO 10:18 → J7W 10:34 → JONCCHEMO 11:00
PROVIDERS: ATTEND Internal Medicine Hematology & Oncology
PROC: 3E013GC Introduction of Other Therapeutic Substance into Subcutaneous Tissue, Percutaneous Approach (ICD-10-PCS; principal; 2024-07-09)
DX: C61 Malignant neoplasm of prostate (principal); Z76.89 Persons encountering health services in other specified circumstances
CPT/HCPCS: 36415; 80048; 80076; 82306; 83735; 84153; 84402; 84403; 85025; 96372; J0897

== ENCOUNTER 2024-08-06 11:35 | Day surgery (SDC) | payer OTHER ==
[2024-08-06] MEDS: DENOSUMAB 120 MG/1.7 ML VIAL SQ ONE (11:10)
[2024-08-06 12:03] LABS: ABSOLUTE IMMATURE GRANULOCYTES 0.04 x10^3/uL (0.0-0.031); BASOPHILS # 0.03 x10^3/uL (0.01-0.08); EOSINOPHILS # 0.06 x10^3/uL (0.04-0.54); HEMATOCRIT 40.5 % (40.1-51.0); HEMOGLOBIN 12.5 g/dL (13.7-17.5); MCHC 30.9 g/dl (32.3-36.5); MEAN CELL VOLUME 66.9 fl (79.0-92.2); MEAN PLT VOLUME 10.2 fl (9.4-12.4); MONOCYTE # 0.39 x10^3/uL (0.30-0.82); MONOCYTE % 6.6 % (5.3-12.2); PLATELET COUNT 240 x10^3/uL (163-337); RDW 15.7 % (12.6-16.6)
[2024-08-06 12:26] LABS: CHLORIDE 106 mmol/L (98-107); POTASSIUM 4.3 mmol/L (3.5-5.1); SODIUM 139 mmol/L (136-145)
[2024-08-06 12:29] LABS: ALBUMIN 3.9 g/dl (3.4-5.0); ANION GAP 6 mmol/L (4-13); CALCIUM 9.8 mg/dL (8.5-10.1); CO2 26 mmol/L (21-32); GLUCOSE,RANDOM 133 mg/dL (74-106)
[2024-08-06 12:30] LABS: BLOOD UREA NITROGEN 31.2 mg/dL (7-18)
[2024-08-06 12:32] LABS: BILIRUBIN,DIRECT 0.1 mg/dL (0.0-0.2)
[2024-08-06 12:33] LABS: CREATININE 0.7 mg/dL (0.55-1.3)
[2024-08-06 12:34] LABS: BILIRUBIN,TOTAL 0.5 mg/dL (0.2-1); TOT PROT 7.2 g/dl (6.4-8.2)
[2024-08-06 18:12] VITALS: BP 132/65; PULSE 68; RESP 20; TEMP 97.3
== END 2024-08-06 18:17 | disposition home or self-care (01) ==
LOC: JONCCHEMO 11:35
PROVIDERS: ATTEND Internal Medicine Hematology & Oncology
PROC: 3E013GC Introduction of Other Therapeutic Substance into Subcutaneous Tissue, Percutaneous Approach (ICD-10-PCS; principal; 2024-08-06)
DX: C61 Malignant neoplasm of prostate (principal); C77.1 Secondary and unspecified malignant neoplasm of intrathoracic lymph nodes; Z76.89 Persons encountering health services in other specified circumstances
CPT/HCPCS: 36415; 80048; 80076; 82306; 83735; 84153; 84402; 84403; 85025; 96372; J0897

== ENCOUNTER 2024-11-26 10:20 | Day surgery (SDC) | payer OTHER ==
[2024-11-26] MEDS: DENOSUMAB 120 MG/1.7 ML VIAL SQ ONE (10:44)
[2024-11-26] MEDS: LEUPROLIDE ACETATE 22.5 MG DIS IM ONE (10:44)
[2024-11-26 11:02] LABS: ABSOLUTE IMMATURE GRANULOCYTES 0.02 x10^3/uL (0.0-0.031); BASOPHILS # 0.02 x10^3/uL (0.01-0.08); EOSINOPHIL % 0.8 % (0.8-7.0); EOSINOPHILS # 0.03 x10^3/uL (0.04-0.54); MCHC 31.2 g/dl (32.3-36.5); MEAN CELL VOLUME 67.5 fl (79.0-92.2); MEAN PLT VOLUME 10.4 fl (9.4-12.4); MONOCYTE # 0.26 x10^3/uL (0.30-0.82); MONOCYTE % 6.6 % (5.3-12.2); RDW 15.7 % (12.6-16.6)
[2024-11-26 11:20] LABS: CO2 27 mmol/L (21-32); CREATININE 0.7 mg/dL (0.55-1.3); GLUCOSE,RANDOM 131 mg/dL (74-106); IRON SERUM 74 ug/dL (50-175); SGOT/AST 13 U/L (15-37); SGPT/ALT 22 U/L (13-61)
[2024-11-26 11:25] LABS: TOT PROT 7.4 g/dl (6.4-8.2)
[2024-11-26 11:26] LABS: ALK PHOS 48 U/L (45-117)
[2024-11-26 17:06] VITALS: BP 126/65; PULSE 65; RESP 20; TEMP 97.8
== END 2024-11-26 10:50 | disposition home or self-care (01) ==
LOC: JONCCHEMO 10:20 → J7W 10:22 → JONCCHEMO 10:50
PROVIDERS: ATTEND Internal Medicine Hematology & Oncology
PROC: 3E013GC Introduction of Other Therapeutic Substance into Subcutaneous Tissue, Percutaneous Approach (ICD-10-PCS; principal; 2024-11-26)
PROC: 3E013GC Introduction of Other Therapeutic Substance into Subcutaneous Tissue, Percutaneous Approach (ICD-10-PCS; 2024-11-26)
DX: C61 Malignant neoplasm of prostate (principal); C77.1 Secondary and unspecified malignant neoplasm of intrathoracic lymph nodes; Z76.89 Persons encountering health services in other specified circumstances
CPT/HCPCS: 36415; 80048; 80076; 82306; 82728; 83540; 83550; 83735; 84153; 84402; 84403; 85025; J0897; J9217

== ENCOUNTER 2025-01-21 10:57 | Day surgery (SDC) | payer OTHER ==
[2025-01-21] MEDS: DENOSUMAB 120 MG/1.7 ML VIAL SQ ONE (11:15)
[2025-01-21 11:52] LABS: ABSOLUTE IMMATURE GRANULOCYTES 0.02 x10^3/uL (0.0-0.031); BASOPHILS # 0.03 x10^3/uL (0.01-0.08); EOSINOPHIL % 1.0 % (0.8-7.0); EOSINOPHILS # 0.05 x10^3/uL (0.04-0.54); MCHC 30.4 g/dl (32.3-36.5); MEAN CELL VOLUME 66.8 fl (79.0-92.2); MEAN PLT VOLUME 11.2 fl (9.4-12.4); MONOCYTE # 0.30 x10^3/uL (0.30-0.82); MONOCYTE % 5.8 % (5.3-12.2); RDW 15.4 % (12.6-16.6)
[2025-01-21 12:09] LABS: GLUCOSE,RANDOM 178 mg/dL (74-106); TOT PROT 7.1 g/dl (6.4-8.2)
[2025-01-21 12:10] LABS: CO2 25 mmol/L (21-32)
[2025-01-21 12:12] LABS: ALK PHOS 44 U/L (40-150)
[2025-01-21 12:14] LABS: SGOT/AST 20 U/L (5-34); SGPT/ALT 15 U/L (0-55)
[2025-01-21 12:15] LABS: CREATININE 0.59 mg/dL (0.55-1.3); IRON SERUM 53 ug/dL (50-175); IRON SERUM 54 ug/dL (50-175)
[2025-01-21 13:44] VITALS: BP 124/59; PULSE 68; RESP 20; TEMP 97.9
== END 2025-01-21 11:35 | disposition home or self-care (01) ==
LOC: JONCCHEMO 10:57 → J7W 11:05 → JONCCHEMO 11:35
PROVIDERS: ATTEND Internal Medicine Hematology & Oncology
PROC: 3E013GC Introduction of Other Therapeutic Substance into Subcutaneous Tissue, Percutaneous Approach (ICD-10-PCS; principal; 2025-01-21)
DX: C61 Malignant neoplasm of prostate (principal); C77.1 Secondary and unspecified malignant neoplasm of intrathoracic lymph nodes
CPT/HCPCS: 36415; 80048; 80076; 82306; 82728; 83540; 83550; 83735; 84153; 84402; 84403; 85025; 96372; J0897